=== PATIENT | male | born 1935 | race Caucasian/White ===

== ENCOUNTER 2020-10-21 15:05 | IRF | payer MEDICARE, SELFPAY ==
--- NOTE | ~2020-10-21 | XR_ITS ---
EXAMINATION: XR knee RT 2V EXAM DATE: 10/27/2020 14:09 INDICATION: Right knee pain. TECHNIQUE: Frontal and lateral projections of the right. There is no prior study for comparison. 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 Similar appearance to the contralateral darling e. There are no acute fractures or dislocations identified. There is no subcutaneous gas. There is small joint effusion. There are no radiopaque foreign bodies. IMPRESSION: 1. 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 2. Small joint effusion. Reviewed, dictated and finalized at location B. FILLER
--- NOTE | ~2020-10-21 | XR_ITS ---
EXAMINATION: XR knee LT 2V EXAM DATE: 10/27/2020 14:09 INDICATION: Left knee pain. TECHNIQUE: Frontal and lateral projections of the left knee. There is no prior study for comparison . 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 Similar appearance to the contralateral side. No apprec iable joint effusion. There are no acute fractures or dislocations identified. There is no subcutane ous gas. There are no radiopaque foreign bodies. 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 Reviewed, dictated and finalized at location B. 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
[2020-10-21 15:05] VITALS: BP 122/52; PULSE 93; RESP 18; TEMP 36.6; O2SAT 97
--- NOTE | 2020-10-21 15:39 | ADMGEN ---
This patient, Smith Morillo, was admitted to [facility] Room 226-01. Patient/family oriented to hospital policies and general routines including ID bracelet, bed and alarms, visiting hours, pain management, procedures, bathroom and other care routines, personal items, smoking policy, room service/diet, and visiting hours. Information on how to activate the Rapid Response Team has been discussed. Patient/Family are encouraged to report perceived risks to care and to ask questions if they do not understand what they are told or what they should do. Arrived at 1505 via [facility] , per EMS was stable during transfer () (pulse 96) (resp 16) (O2 sats 98% on room air) Patient knows he is in the hospital but does not know Dio.
[2020-10-21 15:51] VITALS: BMI 25.4
[2020-10-21 16:53] LABS: Glucose Point of Care 149 (65-105)
[2020-10-21] MEDS: SENNA/DOCUSATE SODIUM TABLET 2 TAB PO (20:26)
[2020-10-21] MEDS: traZODone HCL 50 MG TABLET PO (20:26)
[2020-10-21 20:35] VITALS: PULSE 93; RESP 18; O2SAT 97
[2020-10-21 22:00] VITALS: BP 125/63; PULSE 85; RESP 20; TEMP 36.3; O2SAT 98
[2020-10-22 04:59] LABS: Basophils Percent Auto 0.6 % (0.2-1.2); Eosinophils Absolute Auto 0.1 K/mm3 (0-0.3); Eosinophils Percent Auto 1.5 % (0-4.4); Hematocrit 30.7 % (42.0-52.0); Hemoglobin 10.2 g/dL (14.0-18.0); Immature Granulocyte Absolute 0.13 K/mm3 (0.00-0.031); Immature Granulocyte Percent A 2.4 % (0-0.5); Lymphocytes Absolute Auto 0.97 K/mm3 (0.9-3.2); Lymphocytes Percent Auto 18.1 % (18.3-44.2); Mean Corpuscular HGB Conc 33.2 g/dl (32-36); Mean Corpuscular Hemoglobin 31.5 pg (26-34); Mean Corpuscular Volume 94.8 fl (80-100); Mean Platelet Volume 9.4 fl (7.4-10.4); Monocytes Absolute Auto 0.4 K/mm3 (0.1-0.6); Monocytes Percent Auto 7.8 % (2.6-8.5); Neutrophils Absolute Auto 3.7 K/mm3 (1.3-6.7); Neutrophils Percent Auto 69.6 % (45.5-73.1); Platelet Count Result 155 k/mm3 (150-375); Red Blood Count 3.24 M/mm3 (4.6-6.20); Red Cell Distribution Width 15.9 % (11.5-14.5); White Blood Count 5.4 K/mm3 (4.5-10.0)
[2020-10-22 05:23] LABS: Anion Gap -1 mmol/L (8-16); Blood Urea Nitrogen 17 mg/dL (9-20); Calcium 8.1 mg/dL (8.4-10.2); Carbon Dioxide 30 mmol/L (22-30); Chloride 104 mmol/L (98-107); Estimated CRCL calculation 79 ml/min; Estimated Glomerular Filt Rate > 60; Glucose 150 mg/dL (75-110); Potassium 4.1 mmol/L (3.4-5.0); Sodium 133 mmol/L (137-145)
[2020-10-22 05:52] VITALS: BP 141/53; PULSE 84; RESP 20; TEMP 36.2; O2SAT 100
[2020-10-22 06:37] LABS: Glucose Point of Care 159 (65-105)
[2020-10-22] MEDS: PIOGLITAZONE HCL 15 MG TAB PO (09:15)
[2020-10-22] MEDS: ATORVASTATIN 20 MG TABLET PO (09:15)
[2020-10-22] MEDS: lisinopriL 20 MG TABLET 40 MG PO (09:15)
[2020-10-22] MEDS: ASPIRIN 81 MG ENTERIC TABLET PO (09:15)
[2020-10-22] MEDS: SENNA/DOCUSATE SODIUM TABLET 2 TAB PO ×2 (09:17→16:43)
[2020-10-22] MEDS: LIDOCAINE 5% PATCH 2 PATCH TOPICAL (09:20)
[2020-10-22] MEDS: polyethylene glycoL 3350 17 GM POWD.PACK PO (09:21)
[2020-10-22 11:21] VITALS: BMI 25.4
--- NOTE | 2020-10-22 11:58 | WPDREHABHP ---
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 The patient is 85 years old male with past medical history of hypertension, type 2 diabetes mellitus, and is on 81 mg aspirin daily presented to [facility] on October 17, 2020 following an unwitnessed fall from standing in the bathroom the morning of October 16, 2020. A CT scan of the chest, abdomen, and pelvis revealed an L4 vertebral body burst fracture which extending through through the anterior and posterior cortices . Enlargement of the left iliopsoas muscle with surrounding fat stranding without discrete fluid collection, may reflect underlying intramuscular hematoma. Neuro CT scan revealed no acute intracranial hemorrhage, substantial mass effect, midline shift, or hydrocephalus. Neurosurgery was consulted who ordered an MRI, post void residual bladder scan, labs, chest x-ray, EKG, neuro checks q.4 hours and spinal precautions with log roll. On October 18, 2020 MRI of the lumbar spine revealed L4 burst fracture with minimal retropulsion, no large epidural hematoma no cord signal abnormalities. Possible interspinous ligament injury at L3-4 and L4-5 and questionable posterior longitudinal ligament injury at L4. Severe spinal canal stenosis at L2-3, L3-4 and L4-5 primarily due to posterior disc bulge and ligament flavum thickening superimposed on congenital narrowing of the spinal canal. There is also a tiny epidural hematoma at L3-4 level that contributes to the severe canal stenosis at this level. It was decided to opt for neurosurgical management and a TLSO brace. The patient is to follow-up with neurosurgeon 4 to 6 weeks from October 19, 2020 with an upright AP and lateral x-ray of the lumbar spine. Patient was discharged to [facility] on aspirin 81 mg daily which she was on routinely prior to this hospitalization also. Therapy was initiated at the acute care facility and the patient transferred to us from [facility] on October 21, 2020 27. FALLS OR SURGERIES: The patient has had [no] major surgeries in the 100 days prior to admission. They had [no] falls in the past year. They had [no] falls with injury in the past year. PAST MEDICAL HISTORY: hypertension, hyperlipidemia, and type 2 diabetes PAST SURGICAL HISTORY: hip replacement SOCIAL HISTORY: the patient denies smoking, alcohol, or drug use. 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 He resides in a 1 level home with 2 steps to enter. The patient was independent in all ADLs S and IADL S with a cane prior to this hospitalization. The patient lives with his spouse who is also hard of hearing. the patient's son and family live nearby and are able to assist patient after discharge from rehab FAMILY HISTORY: noncontributory PRIOR LEVEL OF FUNCTION: Eating was [INDEPENDENT] Oral Care was [INDEPENDENT] Toileting Hygiene was [INDEPENDENT] Shower/Bathing was [INDEPENDENT] Upper Body Dressing was [INDEPENDENT] Lower Body Dressing was [INDEPENDENT] Donning/[place] Footwear was [INDEPENDENT] Rolling Left and Right was [INDEPENDENT] Sit to Lying was [INDEPENDENT] Lying to Sitting was [INDEPENDENT] Sit to Stand was [INDEPENDENT] Bed to Chair Transfers was [INDEPENDENT] Toilet Transfers was [INDEPENDENT] Walking was [INDEPENDENT] [>500 feet] with quad cane Wheelchair Mobility was [NOT APPLICABLE PRIOR TO ADMISSION] Stairs the patient was able to complete stairs independently CURRENT
--- NOTE | 2020-10-22 13:08 | PCNSR ---
On 10/22/20, the student, Ashley Mcneill, provided care and completed [facility] documentation on this patient. I have reviewed the student's documentation and agree with the findings.
[2020-10-22 14:00] VITALS: BP 118/44; PULSE 90; RESP 18; TEMP 36.8; O2SAT 98
[2020-10-22 19:25] LABS: Glucose Point of Care 183 (65-105)
[2020-10-22 20:10] VITALS: PULSE 90; RESP 18; O2SAT 98
[2020-10-22] MEDS: traZODone HCL 50 MG TABLET PO (20:28)
[2020-10-22 22:00] VITALS: BP 121/43; PULSE 70; RESP 18; TEMP 36.5; O2SAT 97
[2020-10-23 06:00] VITALS: BP 126/52; PULSE 86; RESP 18; TEMP 36.6; O2SAT 97
[2020-10-23 06:29] LABS: Glucose Point of Care 145 (65-105)
[2020-10-23] MEDS: SENNA/DOCUSATE SODIUM TABLET 2 TAB PO ×2 (08:15→16:56)
[2020-10-23] MEDS: LIDOCAINE 5% PATCH 2 PATCH TOPICAL (08:15)
[2020-10-23] MEDS: lisinopriL 20 MG TABLET 40 MG PO (08:15)
[2020-10-23] MEDS: polyethylene glycoL 3350 17 GM POWD.PACK PO (08:15)
[2020-10-23] MEDS: ASPIRIN 81 MG ENTERIC TABLET PO (08:16)
[2020-10-23] MEDS: PIOGLITAZONE HCL 15 MG TAB PO (08:16)
[2020-10-23] MEDS: ATORVASTATIN 20 MG TABLET PO (08:16)
--- NOTE | 2020-10-23 09:46 | RPD ---
INDIVIDUALIZED PLAN OF CARE FOR Smith Morillo Brief Synthesis of Pre-Admission Screen, Post-Admission Evaluation and Therapy Evaluations: The patient presents to rehab with an L4 vertebral body burst fracture which extends through the anterior and posterior cortices. Comorbidities include HTN, HLD, type 2 diabetes, anemia, and low platelets. The complexity of the patient's medical management, nursing, and therapy needs require an inpatient rehab hospital stay with a physician-led interdisciplinary team approach. The patient?s needs will be best met in an intensive program vs. at a lower level of care. The patient requires physician services for medical oversight, management of post-fracture complications in setting of present comorbidities, and pain management. The patient requires nursing services for DVT prophylactics, infection protection, medication management and education, and pressure relief. Deficits include:ADLs, Balance, Endurance, Family Training/Education, Mobility, Pain Management, ROM, Safety, Strength, and Transfers. Commercial Intelligence Manager/Case Management for: Discharge Planning and Patient/Family Counseling Physical Therapy: 5 days per week for 75 minutes. Treatments may include: Therapeutic Exercise, Gait Training, Neuromuscular Re-education, Transfer Training, Community Reintegration, Bed Mobility, Patient/Family Education, Wheelchair Mobility Group Therapy/Concurrent Therapy Rationales: -Improve attention span during functional activities in a distracted environment. -Enhance problem solving and/or adequate judgment skills during functional activities in a distracted environment. -Promote increased safety awareness in a distracted environment to reduce fall risk with functional tasks, transfers, and ambulation to allow a more safe, self-sufficient return to the home environment. -Improve dynamic balance skills to promote safety and independence with functional activities in a distracted environment for maximum gain. Occupational Therapy: 5 days per week for 75 minutes. Treatments may include: Therapeutic Exercise, Therapeutic Activity, Cognitive Training, Self-Care Transfer Training, Community Reintegration, Home Management, Patient/Family Education, Wheelchair Mobility Training, Energy Conservation Training Group Therapy/Concurrent Therapy Rationales: -Allow therapist to observe and teach generalization and carry-over of skills learned in individual therapy. -Enhance problem solving and sequencing skills during therapeutic activities in a distracted environment. -Promote increased safety awareness in a realistic setting to reduce fall risk with functional tasks due to visual and verbal distractions. -Increase functional level with ADLs, ADL transfers and use of adaptive equipment through therapeutic activities with others while promoting safety to allow a more safe, self-sufficient return home. Speech Therapy: 5 days per week for 30 minutes. Treatments may include: Dysphasia Therapy, Speech/Language/Communication Therapy, Cognitive Training, Patient/Family Education Group Therapy/Concurrent Therapy - Rationale: -Allow therapist to observe and teach generalization and carry-over of skills learned in individual therapy. -Improve comprehension skills with complex or abstract ideas through discussion in a realistic setting. -Enhance problem solving skills with complex issues during activities in a distracted environment. -Promote increased memory skills and concentration in a distracted environment for a safe transition home. -Improve attention and focus with language/communication skills in a realistic and supportive therapeutic setting. -Allow for practice of expression of basic needs and ideas through functional activities with others. Medical Prognosis: Good Anticipated Length of Stay: 14 days Rehab Goals: Eating Goal: 05-Setup or Clean Up Assistance Oral Hygiene Goal: 06-Independent Toileting Hygiene Goal: 04-Supervision or Touching Assi
--- NOTE | 2020-10-23 10:31 | WPDNEURORHBP ---
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 Hypertension 2. Diabetes mellitus, most recent labs revealed WBC 5.4 hemoglobin 10.2 platelet count of 155 electrolytes normal, has remained afebrile with temp of 36.6? pulse 86 respiration 18 pulse ox 97% on room air and a blood pressure 126/52 Review of Systems Review of Systems: All systems reviewed & are unremarkable except as noted in HPI and below Functional Status Ambulation Ability Ambulation Assistive Devices: Parallel Bars Exam Const: General: cooperative and comfortable Nutritional Appearance: average body habitus and thin Limitations: other limitations ( hearing deficit) HENMT: Ears: hearing grossly impaired ( bilateral) Eyes: General: appearance normal, both eyes and all related structures Neck: Neck: normal visual inspection and full ROM Resp: Effort & Inspection: normal respiratory effort Auscultation: clear to auscultation bilaterally Cardio: Jugular venous distension: no JVD Rate: regular rate Rhythm: regular rhythm GI: Auscultation: normal bowel sounds Skin: General skin exam: no rashes or lesions noted Neuro: General: patient oriented x3 Cranial nerves: Yes CN's II-XII intact bilaterally Speech: normal speech Gait exam (Neuro): Unable to assess gait Motor exam (neuro): 5/5 motor strength present throughout Sensory Exam: normal sensation Deep tendon reflexes (DTR's): Right triceps reflex intensity grade: 1+, Left triceps reflex intensity grade: 1+, Rt Biceps (C5, C6): 1+, Left biceps reflex intensity grade: 1+, Right brachioradialis reflex intensity grade: 1+, Left brachioradialis reflex intensity grade: 1+, Right patellar reflex intensity grade: 1+, Left patellar reflex intensity grade: 1+, Right ankle reflex intensity grade: 1+ and Left ankle reflex intensity grade: 1+ Plantar Reflex Responses: downgoing: bilateral Psych: Appearance: grossly normal Objective Data Vital Signs Vital Signs: Vital Signs - 24 hr 10/22/20 14:00 10/22/20 20:10 10/22/20 22:00 Temperature 36.8 C 36.5 C Pulse Rate 90 90 70 Respiratory Rate 18 18 18 Blood Pressure 118/44 L 121/43 L Pulse Oximetry 98 98 97 10/23/20 06:00 Temperature 36.6 C Pulse Rate 86 Respiratory Rate 18 Blood Pressure 126/52 L Pulse Oximetry 97 Intake/Output Intake/Output: Intake & Output 10/20/20 10/21/20 10/22/20 10/23/20 23:59 23:59 23:59 23:59 Intake Total 240 420 240 Balance 240 420 240 Meds/Results Medications: Active Medications Generic Name Dose Route Start Last Admin Trade Name Darrin PRN Reason Stop Dose Admin Acetaminophen 1,000 mg 10/21/20 17:14 Acetaminophen 500 Mg Tablet PO Q6H PRN Pain (Scale Score 4-6) Aspirin 81 mg 10/22/20 09:00 10/23/20 08:16 Aspirin 81 Mg Enteric Tablet PO 81 mg DAILY BRANDY Administration Atorvastatin Calcium 20 mg 10/22/20 09:00 10/23/20 08:16 Atorvastatin 20 Mg Tablet PO 20 mg DAILY BRANDY Administration Cyclobenzaprine HCl 5 mg 10/21/20 17:14 Cyclobenzaprine Hcl 5 Mg Tablet PO TID PRN Muscle Spasm Lidocaine 2 patch 10/22/20 09:00 10/23/20 08:15 Lidocaine 5% Patch TOPICAL 2 patch DAILY BRANDY Administration Lisinopril 40 mg 10/22/20 09:00 10/23/20 08:15 Lisinopril 20 Mg Tablet PO 40 mg DAILY BRANDY Administration Metformin HCl 850 mg 10/22/20 08:00 10/23/20 08:16 Metformin Hcl 850 Mg Tablet PO 850 mg DAILY@0800 BRANDY Administration Oxycodone HCl 5 mg 10/21/20 17:14 Oxycodone Hcl (*Crx) 5 Mg Tab Ir PO Q4H PRN Pain (Scale Score 7-10) Pioglitazone HCl 15 mg 10/22/20 08:00 10/23/20 08:16 Pioglitazone Hcl 15 Mg Tab PO 15 mg DAILY@0800 BRANDY Administration Polyethylene Glycol 17 gm 10/22/20 09:00 10/23/20 08:15 Poly
[2020-10-23] MEDS: ACETAMINOPHEN 500 MG TABLET 1000 MG PO (11:25)
[2020-10-23] MEDS: oxyCODONE HCL (*CRX) 5 MG TAB IR PO ×2 (12:50→23:51)
[2020-10-23 14:00] VITALS: BP 119/58; PULSE 89; RESP 16; TEMP 36.2; O2SAT 100
[2020-10-23 16:23] LABS: Glucose Point of Care 173 (65-105)
[2020-10-23 22:00] VITALS: BP 116/43; PULSE 105; RESP 20; TEMP 36.6; O2SAT 97
[2020-10-23] MEDS: traZODone HCL 50 MG TABLET PO (22:00)
[2020-10-24] MEDS: ACETAMINOPHEN 500 MG TABLET 1000 MG PO (01:05)
[2020-10-24 06:00] VITALS: BP 123/58; PULSE 105; RESP 18; TEMP 36.7; O2SAT 97
[2020-10-24 06:46] LABS: Glucose Point of Care 138 (65-105)
[2020-10-24] MEDS: LIDOCAINE 5% PATCH 2 PATCH TOPICAL (08:15)
[2020-10-24] MEDS: oxyCODONE HCL (*CRX) 5 MG TAB IR PO (08:16)
[2020-10-24] MEDS: ATORVASTATIN 20 MG TABLET PO (08:19)
[2020-10-24] MEDS: polyethylene glycoL 3350 17 GM POWD.PACK PO (08:19)
[2020-10-24] MEDS: SENNA/DOCUSATE SODIUM TABLET 2 TAB PO ×2 (08:19→17:19)
[2020-10-24] MEDS: PIOGLITAZONE HCL 15 MG TAB PO (08:20)
[2020-10-24] MEDS: lisinopriL 20 MG TABLET 40 MG PO (08:20)
[2020-10-24] MEDS: ASPIRIN 81 MG ENTERIC TABLET PO (08:20)
[2020-10-24 14:58] VITALS: BP 110/51; PULSE 98; RESP 20; TEMP 36.1; O2SAT 99
[2020-10-24 16:55] LABS: Glucose Point of Care 182 (65-105)
[2020-10-24] MEDS: traZODone HCL 50 MG TABLET PO (21:12)
[2020-10-24] MEDS: MELATONIN 3 MG TABLET 6 MG PO (21:12)
[2020-10-24 22:00] VITALS: BP 124/44; PULSE 96; RESP 20; TEMP 36.4; O2SAT 98
[2020-10-25 06:00] VITALS: BP 128/52; PULSE 88; RESP 20; TEMP 36.1; O2SAT 98
[2020-10-25 06:22] LABS: Glucose Point of Care 141 (65-105)
[2020-10-25] MEDS: lisinopriL 20 MG TABLET 40 MG PO (09:20)
[2020-10-25] MEDS: LIDOCAINE 5% PATCH 2 PATCH TOPICAL (09:20)
[2020-10-25] MEDS: ASPIRIN 81 MG ENTERIC TABLET PO (09:21)
[2020-10-25] MEDS: PIOGLITAZONE HCL 15 MG TAB PO (09:21)
[2020-10-25] MEDS: ATORVASTATIN 20 MG TABLET PO (09:21)
[2020-10-25 14:00] VITALS: BP 121/50; PULSE 88; RESP 16; TEMP 36.4; O2SAT 100
[2020-10-25 17:01] LABS: Glucose Point of Care 169 (65-105)
[2020-10-25 20:00] VITALS: O2SAT 100
[2020-10-25 21:52] VITALS: BP 118/67; PULSE 81; RESP 20; TEMP 36.3; O2SAT 97
[2020-10-25] MEDS: MELATONIN 3 MG TABLET 6 MG PO (21:54)
[2020-10-25] MEDS: traZODone HCL 50 MG TABLET PO (21:54)
[2020-10-26] VITALS (7 sets, daily range): BP systolic 104–126; BP diastolic 46–67; PULSE 67–90; RESP 15–22; TEMP 36.4–37; O2SAT 96–99
[2020-10-26 06:56] LABS: Glucose Point of Care 121 (65-105)
[2020-10-26] MEDS: lisinopriL 20 MG TABLET 40 MG PO (08:28)
[2020-10-26] MEDS: ASPIRIN 81 MG ENTERIC TABLET PO (08:28)
[2020-10-26] MEDS: PIOGLITAZONE HCL 15 MG TAB PO (08:28)
[2020-10-26] MEDS: ATORVASTATIN 20 MG TABLET PO (08:28)
[2020-10-26] MEDS: LIDOCAINE 5% PATCH 2 PATCH TOPICAL (08:29)
[2020-10-26] MEDS: oxyCODONE HCL (*CRX) 5 MG TAB IR PO ×3 (08:36→23:01)
--- NOTE | 2020-10-26 10:44 | WPDNEURORHBP ---
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 Hypertension 2. Diabetes mellitus patient has been involved in the physical therapy and occupational therapy and is also hard of hearing the most recent blood sugar today is 121 and patient is taking the same medication that is metformin 850 daily also he remains afebrile with temp of 36.4? pulse 76 respirations 20 pulse ox 99 with room air and blood pressure of 126/67 Review of Systems Review of Systems: All systems reviewed & are unremarkable except as noted in HPI and below Functional Status Ambulation Ability Ambulation Assistive Devices: Parallel Bars Exam Const: General: cooperative and comfortable Nutritional Appearance: average body habitus and thin Limitations: physical limitations ( hearing deficit) HENMT: Head: normocephalic Ears: hearing grossly impaired General nose exam: Normal external nose present and No nasal discharge present Face and sinus: normal facial exam Mouth: Yes Normal oral and palatal mucosa present Eyes: General: appearance normal, both eyes and all related structures Neck: Neck: full ROM Resp: Effort & Inspection: able to speak in complete sentences Auscultation: clear to auscultation bilaterally Cardio: Rate: regular rate Rhythm: regular rhythm Skin: General skin exam: no rashes or lesions noted Neuro: General: oriented to person, oriented to place, tone normal and moves all extremities Cranial nerves: Yes CN's II-XII intact bilaterally Speech: normal speech Motor exam (neuro): 5/5 motor strength present throughout Deep tendon reflexes (DTR's): Right triceps reflex intensity grade: 1+, Left triceps reflex intensity grade: 1+, Rt Biceps (C5, C6): 1+, Left biceps reflex intensity grade: 1+, Right brachioradialis reflex intensity grade: 1+, Left brachioradialis reflex intensity grade: 1+, Right patellar reflex intensity grade: 1+, Left patellar reflex intensity grade: 1+ and Right ankle reflex intensity grade: 1+ Plantar Reflex Responses: downgoing: bilateral Psych: Mental Status: mental status grossly normal Objective Data Vital Signs Vital Signs: Vital Signs - 24 hr 10/25/20 14:00 10/25/20 20:00 10/25/20 21:52 Temperature 36.4 C 36.3 C L Pulse Rate 88 81 Respiratory Rate 16 20 Blood Pressure 121/50 L 118/67 Pulse Oximetry 100 100 97 10/26/20 06:00 10/26/20 08:00 Temperature 36.4 C Pulse Rate 76 76 Respiratory Rate 20 20 Blood Pressure 126/67 Pulse Oximetry 99 99 Intake/Output Intake/Output: Intake & Output 10/23/20 10/24/20 10/25/20 10/26/20 23:59 23:59 23:59 23:59 Intake Total 240 480 840 480 Balance 240 480 840 480 Meds/Results Medications: Active Medications Generic Name Dose Route Start Last Admin Trade Name Freq PRN Reason Stop Dose Admin Acetaminophen 1,000 mg 10/21/20 17:14 10/24/20 01:05 Acetaminophen 500 Mg Tablet PO 1,000 mg Q6H PRN Administration Pain (Scale Score 4-6) Aspirin 81 mg 10/22/20 09:00 10/26/20 08:28 Aspirin 81 Mg Enteric Tablet PO 81 mg DAILY BRANDY Administration Atorvastatin Calcium 20 mg 10/22/20 09:00 10/26/20 08:28 Atorvastatin 20 Mg Tablet PO 20 mg DAILY BRANDY Administration Cyclobenzaprine HCl 5 mg 10/21/20 17:14 Cyclobenzaprine Hcl 5 Mg Tablet PO TID PRN Muscle Spasm Lidocaine 2 patch 10/22/20 09:00 10/26/20 08:29 Lidocaine 5% Patch TOPICAL 2 patch DAILY BRANDY Administration Lisinopril 40 mg 10/22/20 09:00 10/26/20 08:28 Lisinopril 20 Mg Tablet PO 40 mg DAILY BRANDY Administration Melatonin 6 mg 10/24/20 21:00 10/25/20 21:54 Melatonin 3 Mg Tablet PO 6 mg HS BRANDY Administration Metformin HCl 850 mg 10/22/20 08:00 10/26/20 08:28 Metformin Hcl 850 Mg Tablet PO 850 mg DAILY@0800 BRANDY Administration Oxycod
[2020-10-26 16:42] LABS: Glucose Point of Care 140 (65-105)
--- NOTE | 2020-10-26 16:55 | PC.NURSE ---
Patient confused through out shift. Keeps wanting his stuff off the front porch. Wants his meds in bed with him. Asking why i wont let him walk around. patient takes two people to help get him out of bed. bed alarm is on. call light within reach. continue to monitor.
[2020-10-26] MEDS: ACETAMINOPHEN 500 MG TABLET 1000 MG PO (17:36)
--- NOTE | 2020-10-26 18:07 | PC.NURSE ---
patient remains confused through out shift. insists on walking down the [place]. doesnt understand how to use the call light. reinforced call light instructions. yells out continuously. bed alarms are on. in patient's room numerous times each hour. will continue to monitor.
[2020-10-26] MEDS: MELATONIN 3 MG TABLET 6 MG PO (20:00)
[2020-10-26] MEDS: traZODone HCL 50 MG TABLET PO (20:00)
[2020-10-27 05:48] VITALS: BP 110/49; PULSE 83; RESP 18; TEMP 36.9; O2SAT 98
[2020-10-27 06:37] LABS: Glucose Point of Care 167 (65-105)
[2020-10-27] MEDS: polyethylene glycoL 3350 17 GM POWD.PACK PO (07:46)
[2020-10-27] MEDS: LIDOCAINE 5% PATCH 2 PATCH TOPICAL (07:46)
[2020-10-27] MEDS: ASPIRIN 81 MG ENTERIC TABLET PO (07:47)
[2020-10-27] MEDS: lisinopriL 20 MG TABLET PO (07:47)
[2020-10-27] MEDS: PIOGLITAZONE HCL 15 MG TAB PO (07:47)
[2020-10-27] MEDS: SENNA/DOCUSATE SODIUM TABLET 2 TAB PO ×2 (07:47→17:26)
[2020-10-27] MEDS: ATORVASTATIN 20 MG TABLET PO (07:47)
--- NOTE | 2020-10-27 10:30 | WPDNEURORHBP ---
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 Hypertension 2. Diabetes mellitus has been involved the physical therapy also has been complaining of chronic pain in the knees left more than the right. There is expecting to discharge him on November 09, 2020 his blood sugar today is One hundred sixty-seven and vital signs are stable with temp of 36.9? pulse 83 respiration 18 pulse ox 98% on room air blood pressure 110/49 Review of Systems Review of Systems: All systems reviewed & are unremarkable except as noted in HPI and below Functional Status Ambulation Ability Ambulation Assistive Devices: Walker, Wheeled Exam Const: General: cooperative and comfortable Nutritional Appearance: average body habitus and thin Orientation/consciousness: oriented to person HENMT: Head: normocephalic Eyes: General: appearance normal, both eyes and all related structures Neck: Neck: full ROM Resp: Effort & Inspection: normal respiratory effort Auscultation: clear to auscultation bilaterally Cardio: Jugular venous distension: no JVD Rate: regular rate Rhythm: regular rhythm GI: Auscultation: normal bowel sounds Skin: General skin exam: no rashes or lesions noted Neuro: General: patient oriented x3 and moves all extremities Cranial nerves: Yes CN's II-XII intact bilaterally Cognition (Neuro): normal cognition Speech: normal speech Motor exam (neuro): Abnormal motor strength present Deep tendon reflexes (DTR's): Right triceps reflex intensity grade: 1+, Left triceps reflex intensity grade: 1+, Rt Biceps (C5, C6): 1+, Left biceps reflex intensity grade: 1+, Right brachioradialis reflex intensity grade: 1+, Left brachioradialis reflex intensity grade: 1+, Right patellar reflex intensity grade: 1+, Left patellar reflex intensity grade: 1+, Right ankle reflex intensity grade: 1+ and Left ankle reflex intensity grade: 1+ Plantar Reflex Responses: downgoing: bilateral Psych: Appearance: grossly normal Speech and movement: Clear speech present Affect: normal affect Attitude: Other attitude/behavior findings present (Psych) Thought content: Yes Normal thought content present Insight: Fair insight present (Psych) Judgement: Fair judgement present (Psych) Objective Data Vital Signs Vital Signs: Vital Signs - 24 hr 10/26/20 14:00 10/26/20 17:36 10/26/20 18:43 Temperature 36.8 C 36.8 C 36.8 C Pulse Rate 67 Respiratory Rate 22 H Blood Pressure 108/53 L Pulse Oximetry 98 10/26/20 20:15 10/26/20 22:00 10/27/20 05:48 Temperature 37.0 C 36.9 C Pulse Rate 67 90 83 Respiratory Rate 22 H 15 18 Blood Pressure 104/46 L 110/49 L Pulse Oximetry 98 96 98 Intake/Output Intake/Output: Intake & Output 10/24/20 10/25/20 10/26/20 10/27/20 23:59 23:59 23:59 23:59 Intake Total 975 539 2722 Balance 832 989 9925 Meds/Results Medications: Active Medications Generic Name Dose Route Start Last Admin Trade Name Freq PRN Reason Stop Dose Admin Acetaminophen 1,000 mg 10/21/20 17:14 10/26/20 17:36 Acetaminophen 500 Mg Tablet PO 1,000 mg Q6H PRN Administration Pain (Scale Score 4-6) Aspirin 81 mg 10/22/20 09:00 10/27/20 07:47 Aspirin 81 Mg Enteric Tablet PO 81 mg DAILY BRANDY Administration Atorvastatin Calcium 20 mg 10/22/20 09:00 10/27/20 07:47 Atorvastatin 20 Mg Tablet PO 20 mg DAILY BRANDY Administration Cyclobenzaprine HCl 5 mg 10/21/20 17:14 Cyclobenzaprine Hcl 5 Mg Tablet PO TID PRN Muscle Spasm Lidocaine 2 patch 10/22/20 09:00 10/27/20 07:46 Lidocaine 5% Patch TOPICAL 2 patch DAILY BRANDY Administration Lisinopril 20 mg 10/27/20 09:00 10/27/20 07:47 Lisinopril 20 Mg Tablet PO 20 mg QAM BRANDY Administration Melatonin 6 mg 10/24/20 21:00 10/26/20 20:00
--- NOTE | 2020-10-27 10:37 | WPDNEURORHBP ---
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 Vital signs have remained stable with temp of 36.9? pulse 83 respiration 18 pulse ox 98% on room air and blood pressure 110/49 ,there is no recent lab. Review of Systems Review of Systems: All systems reviewed & are unremarkable except as noted in HPI and below Functional Status Ambulation Ability Ambulation Assistive Devices: Walker, Wheeled Exam Const: General: cooperative, comfortable and no acute distress Nutritional Appearance: average body habitus HENMT: Head: normocephalic Eyes: General: appearance normal, both eyes and all related structures Resp: Auscultation: clear to auscultation bilaterally Cardio: Rate: regular rate Rhythm: regular rhythm GI: Auscultation: normal bowel sounds Neuro: General: patient oriented x3 and moves all extremities Cranial nerves: Yes CN's II-XII intact bilaterally Cognition (Neuro): normal cognition Speech: normal speech Gait exam (Neuro): Assisted gait required Deep tendon reflexes (DTR's): Right triceps reflex intensity grade: 1+, Left triceps reflex intensity grade: 1+, Rt Biceps (C5, C6): 1+, Left biceps reflex intensity grade: 1+, Right brachioradialis reflex intensity grade: 1+, Left brachioradialis reflex intensity grade: 1+, Right patellar reflex intensity grade: 1+, Left patellar reflex intensity grade: 1+, Right ankle reflex intensity grade: 1+ and Left ankle reflex intensity grade: 1+ Plantar Reflex Responses: downgoing: bilateral Psych: Appearance: grossly normal Mental Status: mental status grossly normal ( up and down) Objective Data Vital Signs Vital Signs: Vital Signs - 24 hr 10/26/20 14:00 10/26/20 17:36 10/26/20 18:43 Temperature 36.8 C 36.8 C 36.8 C Pulse Rate 67 Respiratory Rate 22 H Blood Pressure 108/53 L Pulse Oximetry 98 10/26/20 20:15 10/26/20 22:00 10/27/20 05:48 Temperature 37.0 C 36.9 C Pulse Rate 67 90 83 Respiratory Rate 22 H 15 18 Blood Pressure 104/46 L 110/49 L Pulse Oximetry 98 96 98 Intake/Output Intake/Output: Intake & Output 10/24/20 10/25/20 10/26/20 10/27/20 23:59 23:59 23:59 23:59 Intake Total 727 062 5606 Balance 576 238 7208 Meds/Results Medications: Active Medications Generic Name Dose Route Start Last Admin Trade Name Freq PRN Reason Stop Dose Admin Acetaminophen 1,000 mg 10/21/20 17:14 10/26/20 17:36 Acetaminophen 500 Mg Tablet PO 1,000 mg Q6H PRN Administration Pain (Scale Score 4-6) Aspirin 81 mg 10/22/20 09:00 10/27/20 07:47 Aspirin 81 Mg Enteric Tablet PO 81 mg DAILY BRANDY Administration Atorvastatin Calcium 20 mg 10/22/20 09:00 10/27/20 07:47 Atorvastatin 20 Mg Tablet PO 20 mg DAILY BRANDY Administration Cyclobenzaprine HCl 5 mg 10/21/20 17:14 Cyclobenzaprine Hcl 5 Mg Tablet PO TID PRN Muscle Spasm Lidocaine 2 patch 10/22/20 09:00 10/27/20 07:46 Lidocaine 5% Patch TOPICAL 2 patch DAILY BRANDY Administration Lisinopril 20 mg 10/27/20 09:00 10/27/20 07:47 Lisinopril 20 Mg Tablet PO 20 mg QAM BRANDY Administration Melatonin 6 mg 10/24/20 21:00 10/26/20 20:00 Melatonin 3 Mg Tablet PO 6 mg HS BRANDY Administration Metformin HCl 850 mg 10/22/20 08:00 10/27/20 07:47 Metformin Hcl 850 Mg Tablet PO 850 mg DAILY@0800 BRANDY Administration Oxycodone HCl 5 mg 10/21/20 17:14 10/26/20 23:01 Oxycodone Hcl (*Crx) 5 Mg Tab Ir PO 5 mg Q4H PRN Administration Pain (Scale Score 7-10) Pioglitazone HCl 15 mg 10/22/20 08:00 10/27/20 07:47 Pioglitazone Hcl 15 Mg Tab PO 15 mg DAILY@0800 BRANDY Administration Polyethylene Glycol 17 gm 10/22/20 09:00 10/27/20 07:46 Poly
[2020-10-27] MEDS: ACETAMINOPHEN 500 MG TABLET 1000 MG PO ×2 (11:10→18:48)
[2020-10-27 14:00] VITALS: BP 102/50; PULSE 92; RESP 20; TEMP 36.5; O2SAT 98
[2020-10-27 16:18] LABS: Glucose Point of Care 141 (65-105)
[2020-10-27] MEDS: oxyCODONE HCL (*CRX) 5 MG TAB IR PO (19:41)
[2020-10-27] MEDS: MELATONIN 3 MG TABLET 6 MG PO (20:45)
[2020-10-27] MEDS: traZODone HCL 50 MG TABLET PO (20:45)
[2020-10-27 22:00] VITALS: BP 108/43; PULSE 88; RESP 20; TEMP 36.9; O2SAT 97
[2020-10-28 05:52] VITALS: BP 114/58; PULSE 82; RESP 18; TEMP 36.1; O2SAT 98
[2020-10-28 06:51] LABS: Glucose Point of Care 121 (65-105)
[2020-10-28] MEDS: SENNA/DOCUSATE SODIUM TABLET 2 TAB PO ×2 (08:09→17:09)
[2020-10-28] MEDS: lisinopriL 20 MG TABLET PO (08:09)
[2020-10-28] MEDS: ASPIRIN 81 MG ENTERIC TABLET PO (08:09)
[2020-10-28] MEDS: PIOGLITAZONE HCL 15 MG TAB PO (08:09)
[2020-10-28] MEDS: ATORVASTATIN 20 MG TABLET PO (08:09)
[2020-10-28] MEDS: polyethylene glycoL 3350 17 GM POWD.PACK PO (08:10)
[2020-10-28] MEDS: LIDOCAINE 5% PATCH 2 PATCH TOPICAL (08:10)
[2020-10-28] MEDS: ACETAMINOPHEN 500 MG TABLET 1000 MG PO (08:10)
[2020-10-28] MEDS: oxyCODONE HCL (*CRX) 5 MG TAB IR PO ×2 (10:55→17:09)
--- NOTE | 2020-10-28 11:21 | WPDNEURORHBP ---
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 Remains afebrile with temp of 36.1? pulse 82 respirations 18 pulse ox 98% blood pressure 114/58 Review of Systems Review of Systems: All systems reviewed & are unremarkable except as noted in HPI and below Functional Status Ambulation Ability Ambulation Assistive Devices: Parallel Bars Exam Const: General: cooperative, comfortable and no acute distress Nutritional Appearance: average body habitus Orientation/consciousness: patient oriented x3 Limitations: other limitations ( L4 vertebral body burst fracture) HENMT: Head: normocephalic Ears: hearing grossly impaired General nose exam: Normal external nose present and No nasal discharge present Eyes: General: appearance normal, both eyes and all related structures Neck: Neck: full ROM Resp: Effort & Inspection: normal respiratory effort Auscultation: clear to auscultation bilaterally Cardio: Rate: regular rate Rhythm: regular rhythm GI: Auscultation: normoactive bowel sounds Neuro: General: patient oriented x3 Cranial nerves: Yes CN's II-XII intact bilaterally Cognition (Neuro): normal cognition Motor exam (neuro): 5/5 motor strength present throughout Sensory Exam: normal sensation Deep tendon reflexes (DTR's): Right triceps reflex intensity grade: 1+, Left triceps reflex intensity grade: 1+, Rt Biceps (C5, C6): 1+, Left biceps reflex intensity grade: 1+, Right brachioradialis reflex intensity grade: 1+, Left brachioradialis reflex intensity grade: 1+, Right patellar reflex intensity grade: 1+, Left patellar reflex intensity grade: 1+, Right ankle reflex intensity grade: 1+ and Left ankle reflex intensity grade: 1+ Coordination: [id number] test normal Psych: Appearance: grossly normal Objective Data Vital Signs Vital Signs: Vital Signs - 24 hr 10/27/20 14:00 10/27/20 22:00 10/28/20 05:52 Temperature 36.5 C 36.9 C 36.1 C L Pulse Rate 92 88 82 Respiratory Rate 20 20 18 Blood Pressure 102/50 L 108/43 L 114/58 L Pulse Oximetry 98 97 98 Intake/Output Intake/Output: Intake & Output 01/31/21 10/26/20 10/27/20 10/28/20 23:59 23:59 23:59 23:59 Intake Total 840 1440 720 100 Balance 840 1440 720 100 Meds/Results Medications: Active Medications Generic Name Dose Route Start Last Admin Trade Name Freq PRN Reason Stop Dose Admin Acetaminophen 1,000 mg 10/21/20 17:14 10/28/20 08:10 Acetaminophen 500 Mg Tablet PO 1,000 mg Q6H PRN Administration Pain (Scale Score 4-6) Aspirin 81 mg 10/22/20 09:00 10/28/20 08:09 Aspirin 81 Mg Enteric Tablet PO 81 mg DAILY BRANDY Administration Atorvastatin Calcium 20 mg 10/22/20 09:00 10/28/20 08:09 Atorvastatin 20 Mg Tablet PO 20 mg DAILY BRANDY Administration Cyclobenzaprine HCl 5 mg 10/21/20 17:14 Cyclobenzaprine Hcl 5 Mg Tablet PO TID PRN Muscle Spasm Lidocaine 2 patch 10/22/20 09:00 10/28/20 08:10 Lidocaine 5% Patch TOPICAL 2 patch DAILY BRANDY Administration Lisinopril 20 mg 10/27/20 09:00 10/28/20 08:09 Lisinopril 20 Mg Tablet PO 20 mg QAM BRANDY Administration Melatonin 6 mg 10/24/20 21:00 10/27/20 20:45 Melatonin 3 Mg Tablet PO 6 mg HS BRANDY Administration Metformin HCl 850 mg 10/22/20 08:00 10/28/20 08:09 Metformin Hcl 850 Mg Tablet PO 850 mg DAILY@0800 BRANDY Administration Oxycodone HCl 5 mg 10/28/20 12:00 10/28/20 10:55 Oxycodone Hcl (*Crx) 5 Mg Tab Ir PO 5 mg Q6HR BRANDY Administration Pioglitazone HCl 15 mg 10/22/20 08:00 10/28/20 08:09 Pioglitazone Hcl 15 Mg Tab PO 15 mg DAILY@0800 BR[facility] Administration Polyethylene Glycol 17 gm 10/22/20 09:00 10/28/20 08:10 Polyethylene Glycol 3350 17 Gm Powd.Pack PO 17 gm DAILY BRANDY Administration Senna/
[2020-10-28 14:00] VITALS: BP 109/43; PULSE 95; RESP 18; TEMP 36.6; O2SAT 97
[2020-10-28 16:22] LABS: Glucose Point of Care 134 (65-105)
[2020-10-28] MEDS: traZODone HCL 50 MG TABLET PO (20:15)
[2020-10-28] MEDS: CYCLOBENZAPRINE HCL 5 MG TABLET PO (20:15)
[2020-10-28] MEDS: MELATONIN 3 MG TABLET 6 MG PO (20:15)
[2020-10-28 22:00] VITALS: BP 112/52; PULSE 90; RESP 20; TEMP 36; O2SAT 98
[2020-10-29] MEDS: oxyCODONE HCL (*CRX) 5 MG TAB IR PO ×5 (00:14→23:10)
[2020-10-29 05:19] LABS: Basophils Absolute Auto 0.1 K/mm3 (0.0-0.1); Eosinophils Absolute Auto 0.1 K/mm3 (0-0.3); Eosinophils Percent Auto 1.3 % (0-4.4); Hematocrit 28.6 % (42.0-52.0); Hemoglobin 9.2 g/dL (14.0-18.0); Immature Granulocyte Absolute 0.17 K/mm3 (0.00-0.031); Immature Granulocyte Percent A 2.8 % (0-0.5); Lymphocytes Absolute Auto 1.23 K/mm3 (0.9-3.2); Lymphocytes Percent Auto 19.9 % (18.3-44.2); Mean Corpuscular HGB Conc 32.2 g/dl (32-36); Mean Corpuscular Hemoglobin 30.9 pg (26-34); Mean Platelet Volume 9.2 fl (7.4-10.4); Monocytes Absolute Auto 0.5 K/mm3 (0.1-0.6); Monocytes Percent Auto 8.3 % (2.6-8.5); Neutrophils Absolute Auto 4.1 K/mm3 (1.3-6.7); Neutrophils Percent Auto 66.7 % (45.5-73.1); Platelet Count Result 259 k/mm3 (150-375); Red Blood Count 2.98 M/mm3 (4.6-6.20); Red Cell Distribution Width 16.6 % (11.5-14.5); White Blood Count 6.2 K/mm3 (4.5-10.0)
[2020-10-29 05:38] LABS: Anion Gap 0 mmol/L (8-16); Blood Urea Nitrogen 17 mg/dL (9-20); Calcium 8.1 mg/dL (8.4-10.2); Carbon Dioxide 31 mmol/L (22-30); Chloride 101 mmol/L (98-107); Estimated CRCL calculation 70 ml/min; Estimated Glomerular Filt Rate > 60; Glucose 106 mg/dL (75-110); Potassium 3.9 mmol/L (3.4-5.0); Sodium 132 mmol/L (137-145)
[2020-10-29 06:00] VITALS: BP 115/48; PULSE 89; RESP 20; TEMP 35.5; O2SAT 98
[2020-10-29 06:41] LABS: Glucose Point of Care 100 (65-105)
[2020-10-29 09:00] VITALS: O2SAT 40
[2020-10-29] MEDS: LIDOCAINE 5% PATCH 2 PATCH TOPICAL (09:28)
[2020-10-29] MEDS: CYCLOBENZAPRINE HCL 5 MG TABLET PO (09:28)
[2020-10-29] MEDS: PIOGLITAZONE HCL 15 MG TAB PO (09:29)
[2020-10-29] MEDS: ASPIRIN 81 MG ENTERIC TABLET PO (09:29)
[2020-10-29] MEDS: ATORVASTATIN 20 MG TABLET PO (09:29)
[2020-10-29] MEDS: lisinopriL 20 MG TABLET PO (09:29)
[2020-10-29] MEDS: SENNA/DOCUSATE SODIUM TABLET 2 TAB PO (09:29)
--- NOTE | 2020-10-29 11:52 | WPDNEURORHBP ---
Subjective Date/time seen: 10/29/20 11:52 85 years old with spinal cord dysfunction remains actively involved in the physical therapy and occupational therapy also remains afebrile with temp of 35.5? pulse 89 respiration 20 blood pressure 115/48 pulse ox 98% on room air, CBC revealed WBC 6.2 hemoglobin 9.2 and the platelet count 259 electrolytes with sodium 132 Review of Systems Review of Systems: All systems reviewed & are unremarkable except as noted in HPI and below Functional Status Ambulation Ability Ambulation Assistive Devices: Parallel Bars Exam Const: General: cooperative, comfortable, no acute distress, alert and awake Nutritional Appearance: average body habitus Limitations: no limitations HENMT: Head: normocephalic General nose exam: Normal external nose present and No nasal discharge present Eyes: General: appearance normal, both eyes and all related structures Neck: Neck: full ROM and no lymphadenopathy Resp: Effort & Inspection: normal respiratory effort Auscultation: clear to auscultation bilaterally Cardio: Jugular venous distension: no JVD Rate: regular rate Rhythm: regular rhythm GI: Auscultation: normal bowel sounds Skin: General skin exam: no rashes or lesions noted Neuro: General: patient oriented x3 and moves all extremities Cranial nerves: Yes CN's II-XII intact bilaterally Cognition (Neuro): normal cognition Speech: normal speech Gait exam (Neuro): Unable to assess gait Deep tendon reflexes (DTR's): Right triceps reflex intensity grade: 1+, Left triceps reflex intensity grade: 1+, Rt Biceps (C5, C6): 1+, Left biceps reflex intensity grade: 1+, Right brachioradialis reflex intensity grade: 1+, Left brachioradialis reflex intensity grade: 1+, Right patellar reflex intensity grade: 1+, Left patellar reflex intensity grade: 1+, Right ankle reflex intensity grade: 1+ and Left ankle reflex intensity grade: 1+ Plantar Reflex Responses: downgoing: bilateral Psych: Appearance: grossly normal Objective Data Vital Signs Vital Signs: Vital Signs - 24 hr 10/28/20 14:00 10/28/20 22:00 10/29/20 06:00 Temperature 36.6 C 36.0 C L 35.5 C L Pulse Rate 95 90 89 Respiratory Rate 18 20 20 Blood Pressure 109/43 L 112/52 L 115/48 L Pulse Oximetry 97 98 98 Intake/Output Intake/Output: Intake & Output 10/26/20 10/27/20 10/28/20 10/29/20 23:59 23:59 23:59 23:59 Intake Total 1440 720 460 240 Balance 1440 720 460 240 Meds/Results Medications: Active Medications Generic Name Dose Route Start Last Admin Trade Name Freq PRN Reason Stop Dose Admin Acetaminophen 1,000 mg 10/21/20 17:14 10/28/20 08:10 Acetaminophen 500 Mg Tablet PO 1,000 mg Q6H PRN Administration Pain (Scale Score 4-6) Aspirin 81 mg 10/22/20 09:00 10/29/20 09:29 Aspirin 81 Mg Enteric Tablet PO 81 mg DAILY BRANDY Administration Atorvastatin Calcium 20 mg 10/22/20 09:00 10/29/20 09:29 Atorvastatin 20 Mg Tablet PO 20 mg DAILY BRANDY Administration Cyclobenzaprine HCl 5 mg 10/21/20 17:14 10/29/20 09:28 Cyclobenzaprine Hcl 5 Mg Tablet PO 5 mg TID PRN Administration Muscle Spasm Lidocaine 2 patch 10/22/20 09:00 10/29/20 09:28 Lidocaine 5% Patch TOPICAL 2 patch DAILY BRANDY Administration Lisinopril 20 mg 10/27/20 09:00 10/29/20 09:29 Lisinopril 20 Mg Tablet PO 20 mg QAM BRANDY Administration Melatonin 6 mg 10/24/20 21:00 10/28/20 20:15 Melatonin 3 Mg Tablet PO 6 mg HS BRANDY Administration Metformin HCl 850 mg 10/22/20 08:00 10/29/20 09:29 Metformin Hcl 850 Mg Tablet PO 850 mg DAILY@0800 BRANDY Administration Oxycodone HCl 5 mg 10/28/20 12:00 10/29/20 05:19 Oxycodone Hcl (*Crx) 5 Mg Tab Ir PO 5 mg Q6HR BRANDY Administration Pioglitazone HCl 15 mg 10/22/20 08:00 10/29/20 09:29 Pioglitazone Hcl 15 Mg Tab PO 15 mg DAILY@0800 BRANDY Administration Polyethylene Glycol 17 gm 10/22/20 09:00 10/29/20 09:29 Polyethylene Glycol 3350
--- NOTE | 2020-10-29 12:52 | PCNFU ---
Nutrition Follow-Up Complete: No nutritional diagnosis at this time. Goal: Continue meeting nutritional needs and consuming 75-100% meals. Patient is still working towards this goal. No new goal at this time. Pt current nutrition is diabetic carb consistent diet. Last recorded weight is 89.9 kg. Recommend re-weighing patient. Bowel Motility:+ BM 10/29 Labs Reviewed: Hgb 9.2, Hct 29.6, Na 132, BUN 0 Meds Noted: Lipitor, Miralax, Desyrel, Lidoderm, Prinivil, Glucophage, Actos, Flexeril Additional Notes: Spoke with patient. Patient reports having a good appetite. Monitor labs, medications, weight, and oral intake every 7 days.
--- NOTE | 2020-10-29 13:37 | PCNSR ---
On 10/29/20, the student, Ashley Mcneill, provided care and completed [facility] documentation on this patient. I have reviewed the student's documentation and agree with the findings.
[2020-10-29 13:46] LABS: Add Urine Microscopic? YES; Appearance Urine Clear (Clear); Bacteria Urine Trace /hpf; Bilirubin Urine Negative (Negative); Blood Urine Negative (Negative); Color Urine Yellow (Yellow); Glucose Urine UA Negative (Negative); Ketones Urine Negative (Negative); Leukocyte Esterase Ur Negative LEU/UL (Negative); Mucus Urine Rare /lpf; Nitrate Urine Negative (Negative); Protein Urine Negative (Negative); RBC Urine 0-2 /hpf (0-2); Specific Grav Ur 1.015 (1.001-1.035); Squamous Epithelial Cell Urine Rare /hpf (Few); WBC Urine 0-3 /hpf
[2020-10-29 14:00] VITALS: BP 142/75; PULSE 88; RESP 20; TEMP 36.5; O2SAT 100
[2020-10-29 16:46] LABS: Glucose Point of Care 107 (65-105)
[2020-10-29] MEDS: MELATONIN 3 MG TABLET 6 MG PO (20:34)
[2020-10-29] MEDS: traZODone HCL 50 MG TABLET PO (20:34)
[2020-10-29 22:00] VITALS: BP 116/48; PULSE 89; RESP 20; TEMP 36.6; O2SAT 98
[2020-10-30] MEDS: oxyCODONE HCL (*CRX) 5 MG TAB IR PO ×3 (05:49→21:55)
[2020-10-30 06:00] VITALS: BP 126/52; PULSE 88; RESP 20; TEMP 36.1; O2SAT 99
[2020-10-30 06:08] LABS: Glucose Point of Care 121 (65-105)
[2020-10-30] MEDS: ASPIRIN 81 MG ENTERIC TABLET PO (08:41)
[2020-10-30] MEDS: LIDOCAINE 5% PATCH 2 PATCH TOPICAL (08:41)
[2020-10-30] MEDS: lisinopriL 20 MG TABLET PO (08:41)
[2020-10-30] MEDS: PIOGLITAZONE HCL 15 MG TAB PO (08:41)
[2020-10-30] MEDS: ATORVASTATIN 20 MG TABLET PO (08:42)
[2020-10-30] MEDS: CYCLOBENZAPRINE HCL 5 MG TABLET PO (08:44)
[2020-10-30 14:00] VITALS: BP 102/43; PULSE 94; RESP 18; TEMP 36.9; O2SAT 97
--- NOTE | 2020-10-30 15:17 | WPDNEURORHBP ---
Subjective Date/time seen: 10/30/20 15:17 85 years old with spinal cord dysfunction remains involving the physical therapy and occupational therapy, most recent lab with WBC 6.2 hemoglobin 9.2 platelet count of 259 and normal UA Review of Systems Review of Systems: All systems reviewed & are unremarkable except as noted in HPI and below Functional Status Ambulation Ability Ambulation Assistive Devices: Parallel Bars Exam Const: General: cooperative and comfortable Nutritional Appearance: average body habitus Limitations: no limitations HENMT: Head: normocephalic Ears: hearing grossly normal bilaterally General nose exam: Normal external nose present and No nasal discharge present Neck: Neck: full ROM Resp: Auscultation: clear to auscultation bilaterally Cardio: Rate: regular rate Rhythm: regular rhythm GI: Auscultation: normal bowel sounds Neuro: General: patient oriented x3 Cranial nerves: Yes CN's II-XII intact bilaterally Cognition (Neuro): normal cognition Speech: normal speech Motor exam (neuro): 5/5 motor strength present throughout Deep tendon reflexes (DTR's): Left triceps reflex intensity grade: 1+, Rt Biceps (C5, C6): 1+, Left biceps reflex intensity grade: 1+, Right brachioradialis reflex intensity grade: 1+, Left brachioradialis reflex intensity grade: 1+, Right patellar reflex intensity grade: 1+, Left patellar reflex intensity grade: 1+, Right ankle reflex intensity grade: 1+ and Left ankle reflex intensity grade: 1+ Plantar Reflex Responses: downgoing: bilateral Coordination: [id number] test normal Psych: Appearance: grossly normal Objective Data Vital Signs Vital Signs: Vital Signs - 24 hr 10/29/20 22:00 10/30/20 06:00 10/30/20 14:00 Temperature 36.6 C 36.1 C L 36.9 C Pulse Rate 89 88 94 Respiratory Rate 20 20 18 Blood Pressure 116/48 L 126/52 L 102/43 L Pulse Oximetry 98 99 97 Intake/Output Intake/Output: Intake & Output 10/27/20 10/28/20 10/29/20 10/30/20 23:59 23:59 23:59 23:59 Intake Total 720 460 720 480 Balance 720 460 720 480 Meds/Results Medications: Active Medications Generic Name Dose Route Start Last Admin Trade Name Freq PRN Reason Stop Dose Admin Acetaminophen 1,000 mg 10/21/20 17:14 10/28/20 08:10 Acetaminophen 500 Mg Tablet PO 1,000 mg Q6H PRN Administration Pain (Scale Score 4-6) Aspirin 81 mg 10/22/20 09:00 10/30/20 08:41 Aspirin 81 Mg Enteric Tablet PO 81 mg DAILY BRANDY Administration Atorvastatin Calcium 20 mg 10/22/20 09:00 10/30/20 08:42 Atorvastatin 20 Mg Tablet PO 20 mg DAILY BRANDY Administration Diclofenac Sodium 75 mg 10/30/20 17:00 Diclofenac Sod 75 Mg Tablet.Ec PO BIDWM BRANDY Lidocaine 2 patch 10/22/20 09:00 10/30/20 08:41 Lidocaine 5% Patch TOPICAL 2 patch DAILY BRANDY Administration Lisinopril 20 mg 10/27/20 09:00 10/30/20 08:41 Lisinopril 20 Mg Tablet PO 20 mg QAM [facility] Administration Melatonin 6 mg 10/24/20 21:00 10/29/20 20:34 Melatonin 3 Mg Tablet PO 6 mg HS [facility] Administration Metformin HCl 850 mg 10/22/20 08:00 10/30/20 08:41 Metformin Hcl 850 Mg Tablet PO 850 mg DAILY@0800 [facility] Administration Oxycodone HCl 5 mg 10/30/20 22:00 Oxycodone Hcl (*Crx) 5 Mg Tab Ir PO Q8HR [facility] Pioglitazone HCl 15 mg 10/22/20 08:00 10/30/20 08:41 Pioglitazone Hcl 15 Mg Tab PO 15 mg DAILY@0800 [facility] Administration Polyethylene Glycol 17 gm 10/22/20 09:00 10/30/20 08:43 Polyethylene Glycol 3350 17 Gm Powd.Pack PO Not Given DAILY [facility] Senna/Docusate Sodium 2 tab 10/21/20 17:00 10/30/20 08:42 Senna/Docusate Sodium Tablet PO Not Given BID [facility] Trazodone HCl 50 mg 10/21/20 21:00 10/29/20 20:34 Trazodone Hcl 50 Mg Tablet PO 50 mg HS [facility] Administration Radiology Results: ITS Impressions Knee X-Ray 10/27/20 14:17 IMPRESSION: 1. 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 2. Smal
[2020-10-30 16:58] LABS: Alanine Aminotransferase 20 U/L (4-50); Albumin Level 3.2 g/dL (3.5-5.1); Alkaline Phosphatase 113 U/L (38-126); Aspartate Amino Transferase 25 U/L (17-59); Bilirubin,Total 0.8 mg/dL (0.2-1.3)
[2020-10-30 17:30] LABS: Glucose Point of Care 126 (65-105)
[2020-10-30] MEDS: DICLOFENAC SOD 75 MG TABLET.EC PO (18:17)
[2020-10-30 20:00] VITALS: O2SAT 97
[2020-10-30] MEDS: MELATONIN 3 MG TABLET 6 MG PO (21:55)
[2020-10-30] MEDS: traZODone HCL 50 MG TABLET PO (21:55)
[2020-10-30 22:00] VITALS: BP 113/56; PULSE 83; RESP 18; TEMP 36.8; O2SAT 96
[2020-10-31 05:02] VITALS: BP 111/42; PULSE 79; RESP 18; TEMP 36.4; O2SAT 98
[2020-10-31] MEDS: oxyCODONE HCL (*CRX) 5 MG TAB IR PO ×3 (06:34→20:20)
[2020-10-31 06:52] LABS: Glucose Point of Care 110 (65-105)
[2020-10-31 08:00] VITALS: PULSE 79; RESP 18; O2SAT 98
[2020-10-31] MEDS: ASPIRIN 81 MG ENTERIC TABLET PO (09:26)
[2020-10-31] MEDS: ATORVASTATIN 20 MG TABLET PO (09:27)
[2020-10-31] MEDS: lisinopriL 20 MG TABLET PO (09:27)
[2020-10-31] MEDS: PIOGLITAZONE HCL 15 MG TAB PO (09:27)
[2020-10-31] MEDS: DICLOFENAC SOD 75 MG TABLET.EC PO ×2 (09:27→16:56)
[2020-10-31] MEDS: LIDOCAINE 5% PATCH 2 PATCH TOPICAL (09:28)
[2020-10-31] MEDS: polyethylene glycoL 3350 17 GM POWD.PACK PO (09:28)
[2020-10-31] MEDS: SENNA/DOCUSATE SODIUM TABLET 2 TAB PO ×2 (09:28→16:56)
[2020-10-31 09:29] VITALS: TEMP 36.4
[2020-10-31] MEDS: ACETAMINOPHEN 500 MG TABLET 1000 MG PO (09:29)
[2020-10-31 14:00] VITALS: BP 127/48; PULSE 89; RESP 20; TEMP 36.8; O2SAT 99
--- NOTE | 2020-10-31 14:20 | WPDNEURORHBP ---
Subjective Date/time seen: 10/31/20 14:20 remains stable with no change in than low neurological status has been involving the physical therapy and occupation therapy extremely hard of hearing almost to the point difficult to communicate, remains afebrile with temp of 36.4? pulse 79 respiration 18 pulse ox 98 on the room air and a blood pressure 111/42 Review of Systems Review of Systems: All systems reviewed & are unremarkable except as noted in HPI and below Functional Status Ambulation Ability Ambulation Assistive Devices: Parallel Bars Exam Const: General: cooperative and comfortable Nutritional Appearance: average body habitus Limitations: no limitations and other limitations ( significant hearing deficit) HENMT: Ears: hearing grossly impaired General nose exam: Normal external nose present and No nasal discharge present Eyes: General: appearance normal, both eyes and all related structures Chest: Chest palpation & inspection: normal palpation of entire chest wall Resp: Effort & Inspection: normal respiratory effort Auscultation: clear to auscultation bilaterally Cardio: Jugular venous distension: no JVD Rate: regular rate Rhythm: regular rhythm GI: Auscultation: normal bowel sounds Neuro: General: patient oriented x3 Cranial nerves: Yes CN's II-XII intact bilaterally, Yes Bilaterally intact EOM present, Yes Nystagmus not present, Yes facial symmetry, Yes Midline tongue present, Yes Symmetric palate elevation present, Yes hard of hearing and Yes Ability to bilaterally rotate head present Speech: normal speech Psych: Appearance: grossly normal Objective Data Vital Signs Vital Signs: Vital Signs - 24 hr 10/30/20 20:00 10/30/20 22:00 10/31/20 05:02 Temperature 36.8 C 36.4 C Pulse Rate 83 79 Respiratory Rate 18 18 Blood Pressure 113/56 L 111/42 L Pulse Oximetry 97 96 98 10/31/20 08:00 10/31/20 09:29 Temperature 36.4 C Pulse Rate 79 Respiratory Rate 18 Blood Pressure Pulse Oximetry 98 Intake/Output Intake/Output: Intake & Output 10/28/20 10/29/20 10/30/20 10/31/20 23:59 23:59 23:59 23:59 Intake Total 460 720 720 480 Balance 460 720 720 480 Meds/Results Medications: Active Medications Generic Name Dose Route Start Last Admin Trade Name Freq PRN Reason Stop Dose Admin Acetaminophen 1,000 mg 10/21/20 17:14 10/31/20 09:29 Acetaminophen 500 Mg Tablet PO 1,000 mg Q6H PRN Administration Pain (Scale Score 4-6) Aspirin 81 mg 10/22/20 09:00 10/31/20 09:26 Aspirin 81 Mg Enteric Tablet PO 81 mg DAILY BRANDY Administration Atorvastatin Calcium 20 mg 10/22/20 09:00 10/31/20 09:27 Atorvastatin 20 Mg Tablet PO 20 mg DAILY BRANDY Administration Diclofenac Sodium 75 mg 10/30/20 17:00 10/31/20 09:27 Diclofenac Sod 75 Mg Tablet.Ec PO 75 mg BIDWM BRANDY Administration Lidocaine 2 patch 10/22/20 09:00 10/31/20 09:28 Lidocaine 5% Patch TOPICAL 2 patch DAILY BRANDY Administration Lisinopril 20 mg 10/27/20 09:00 10/31/20 09:27 Lisinopril 20 Mg Tablet PO 20 mg QAM BRANDY Administration Melatonin 6 mg 10/24/20 21:00 10/30/20 21:55 Melatonin 3 Mg Tablet PO 6 mg HS BRANDY Administration Metformin HCl 850 mg 10/22/20 08:00 10/31/20 09:27 Metformin Hcl 850 Mg Tablet PO 850 mg DAILY@0800 BRANDY Administration Oxycodone HCl 5 mg 10/30/20 22:00 10/31/20 06:34 Oxycodone Hcl (*Crx) 5 Mg Tab Ir PO 5 mg Q8HR BRANDY Administration Pioglitazone HCl 15 mg 10/22/20 08:00 10/31/20 09:27 Pioglitazone Hcl 15 Mg Tab PO 15 mg DAILY@0800 BRANDY Administration Polyethylene Glycol 17 gm 10/22/20 09:00 10/31/20 09:28 Polyethylene Glycol 3350 17 Gm Powd.Pack PO 17 gm DAILY BRANDY Administration Senna/Docusate Sodium 2 tab 10/21/20 17:00 10/31/20 09:28 Senna/Docusate Sodium Tablet PO 2 tab BID BRANDY Administration Trazodone HCl 50 mg 10/21/20 21:00 10/30/20 21:55 Trazodone Hcl 50 Mg Tablet PO 50
[2020-10-31 20:15] VITALS: PULSE 89; RESP 20; O2SAT 99
[2020-10-31] MEDS: MELATONIN 3 MG TABLET 6 MG PO (20:20)
[2020-10-31] MEDS: traZODone HCL 50 MG TABLET PO (20:20)
[2020-10-31 22:00] VITALS: BP 102/47; PULSE 82; RESP 16; TEMP 36.9; O2SAT 97
[2020-11-01] MEDS: oxyCODONE HCL (*CRX) 5 MG TAB IR PO ×3 (05:37→21:17)
[2020-11-01 06:00] VITALS: BP 112/49; PULSE 77; RESP 18; TEMP 36.7; O2SAT 97
[2020-11-01 06:54] LABS: Glucose Point of Care 110 (65-105)
[2020-11-01] MEDS: PIOGLITAZONE HCL 15 MG TAB PO (08:12)
[2020-11-01] MEDS: ATORVASTATIN 20 MG TABLET PO (08:12)
[2020-11-01] MEDS: LIDOCAINE 5% PATCH 2 PATCH TOPICAL (08:12)
[2020-11-01] MEDS: SENNA/DOCUSATE SODIUM TABLET 2 TAB PO ×2 (08:12→17:12)
[2020-11-01] MEDS: polyethylene glycoL 3350 17 GM POWD.PACK PO (08:12)
[2020-11-01] MEDS: lisinopriL 20 MG TABLET PO (08:12)
[2020-11-01] MEDS: ASPIRIN 81 MG ENTERIC TABLET PO (08:12)
[2020-11-01] MEDS: DICLOFENAC SOD 75 MG TABLET.EC PO ×2 (08:13→17:12)
[2020-11-01 14:00] VITALS: BP 115/49; PULSE 93; RESP 16; TEMP 36.7; O2SAT 98
[2020-11-01 16:54] LABS: Glucose Point of Care 120 (65-105)
[2020-11-01 20:52] VITALS: BP 112/51; PULSE 90; RESP 18; TEMP 36.2; O2SAT 97
[2020-11-01] MEDS: traZODone HCL 50 MG TABLET PO (21:17)
[2020-11-01] MEDS: MELATONIN 3 MG TABLET 6 MG PO (21:17)
[2020-11-02 05:38] VITALS: BP 123/50; PULSE 85; RESP 18; TEMP 35.8; O2SAT 99
[2020-11-02] MEDS: oxyCODONE HCL (*CRX) 5 MG TAB IR PO ×3 (05:48→21:00)
[2020-11-02 05:51] LABS: Glucose Point of Care 92 (65-105)
[2020-11-02] MEDS: DICLOFENAC SOD 75 MG TABLET.EC PO ×2 (08:49→17:23)
[2020-11-02] MEDS: ASPIRIN 81 MG ENTERIC TABLET PO (08:49)
[2020-11-02] MEDS: SENNA/DOCUSATE SODIUM TABLET 2 TAB PO (08:49)
[2020-11-02] MEDS: lisinopriL 20 MG TABLET PO (08:49)
[2020-11-02] MEDS: PIOGLITAZONE HCL 15 MG TAB PO (08:49)
[2020-11-02] MEDS: LIDOCAINE 5% PATCH 2 PATCH TOPICAL (08:49)
[2020-11-02] MEDS: ATORVASTATIN 20 MG TABLET PO (08:50)
[2020-11-02 14:00] VITALS: BP 115/57; PULSE 102; RESP 18; TEMP 36.1; O2SAT 98
[2020-11-02 17:12] LABS: Glucose Point of Care 140 (65-105)
--- NOTE | 2020-11-02 17:20 | WPDNEURORHBP ---
Subjective Date/time seen: 85 years old involving the physical therapy and occupational therapy remains stable, extremely hard of hearing. His temp is 36.1? pulse 102 respiration 18 blood pressure 115/57 pulse ox 98% on room air, change in the medications and no new lab Review of Systems Review of Systems: All systems reviewed & are unremarkable except as noted in HPI and below Functional Status Ambulation Ability Ability to Ambulate 10 Feet: Maximum Assistance X 1 Ambulation Assistive Devices: Parallel Bars and Walker, Wheeled Exam Const: General: cooperative, comfortable and no acute distress Nutritional Appearance: average body habitus Limitations: other limitations ( severe hearing deficit) HENMT: Head: normocephalic Ears: hearing grossly normal bilaterally and hearing grossly impaired General nose exam: Normal external nose present and No nasal discharge present Mouth: Yes Normal oral and palatal mucosa present Eyes: General: appearance normal, both eyes and all related structures Neck: Neck: full ROM Resp: Effort & Inspection: normal respiratory effort Auscultation: clear to auscultation bilaterally Cardio: Jugular venous distension: no JVD Rate: regular rate Rhythm: regular rhythm GI: Auscultation: normal bowel sounds Neuro: General: patient oriented x3 Cranial nerves: Yes CN's II-XII intact bilaterally, Yes Facial sensation intact/muscles of mastication intact, Yes Equal, round and reactive pupils present, Yes Nystagmus not present, Yes Normal facial strength present, Yes facial symmetry, Yes Midline tongue present, Yes Normal gag reflex present, Yes Symmetric palate elevation present and Yes hard of hearing Cognition (Neuro): normal cognition Speech: normal speech Motor exam (neuro): 5/5 motor strength present throughout Sensory Exam: Sensory deficit (Neuro) Coordination: [id number] test normal Psych: Mental Status: mental status grossly normal Objective Data Vital Signs Vital Signs: Vital Signs - 24 hr 11/01/20 20:52 11/02/20 05:38 11/02/20 14:00 Temperature 36.2 C L 35.8 C L 36.1 C L Pulse Rate 90 85 102 H Respiratory Rate 18 18 18 Blood Pressure 112/51 L 123/50 L 115/57 L Pulse Oximetry 97 99 98 Intake/Output Intake/Output: Intake & Output 10/30/20 10/31/20 11/01/20 11/02/20 23:59 23:59 23:59 23:59 Intake Total 720 720 480 480 Balance 720 720 480 480 Meds/Results Medications: Active Medications Generic Name Dose Route Start Last Admin Trade Name Fretammy PRN Reason Stop Dose Admin Acetaminophen 1,000 mg 10/21/20 17:14 10/31/20 09:29 Acetaminophen 500 Mg Tablet PO 1,000 mg Q6H PRN Administration Pain (Scale Score 4-6) Aspirin 81 mg 10/22/20 09:00 11/02/20 08:49 Aspirin 81 Mg Enteric Tablet PO 81 mg DAILY BRANDY Administration Atorvastatin Calcium 20 mg 10/22/20 09:00 11/02/20 08:50 Atorvastatin 20 Mg Tablet PO 20 mg DAILY BRANDY Administration Diclofenac Sodium 75 mg 10/30/20 17:00 11/02/20 08:49 Diclofenac Sod 75 Mg Tablet.Ec PO 75 mg BIDWM [facility] Administration Lidocaine 2 patch 10/22/20 09:00 11/02/20 08:49 Lidocaine 5% Patch TOPICAL 2 patch DAILY BRANDY Administration Lisinopril 20 mg 10/27/20 09:00 11/02/20 08:49 Lisinopril 20 Mg Tablet PO 20 mg QAM BRANDY Administration Melatonin 6 mg 10/24/20 21:00 11/01/20 21:17 Melatonin 3 Mg Tablet PO 6 mg HS BRANDY Administration Metformin HCl 850 mg 10/22/20 08:00 11/02/20 08:50 Metformin Hcl 850 Mg Tablet PO 850 mg DAILY@0800 [facility]ANDY Administration Oxycodone HCl 5 mg 10/30/20 22:00 11/02/20 14:47 Oxycodone Hcl (*Crx) 5 Mg Tab Ir PO 5 mg Q8HR BRANDY Administration Pioglitazone HCl 15 mg 10/22/20 08:00 11/02/20 08:49 Pioglitazone Hcl 15 Mg Tab PO 15 mg DAILY@0800 [facility] Administration Polyethylene Glycol 17 gm 10/22/20 09:00 11/02/20 08:51 Polyethylene Glycol 3350 17 Gm Powd.Pack PO Not Given DAILY BRANDY Senna/Docusate Sod
[2020-11-02 20:16] VITALS: BP 104/47; PULSE 95; RESP 20; TEMP 36.7; O2SAT 98
[2020-11-02] MEDS: traZODone HCL 50 MG TABLET PO (20:55)
[2020-11-02] MEDS: MELATONIN 3 MG TABLET 6 MG PO (20:55)
[2020-11-03] MEDS: oxyCODONE HCL (*CRX) 5 MG TAB IR PO ×3 (05:15→21:00)
[2020-11-03 05:25] LABS: Glucose Point of Care 102 (65-105)
[2020-11-03 05:37] VITALS: BP 101/41; PULSE 74; RESP 20; TEMP 35.9; O2SAT 99
[2020-11-03] MEDS: LIDOCAINE 5% PATCH 2 PATCH TOPICAL (07:56)
[2020-11-03] MEDS: SENNA/DOCUSATE SODIUM TABLET 2 TAB PO (07:57)
[2020-11-03] MEDS: DICLOFENAC SOD 75 MG TABLET.EC PO ×2 (07:57→17:29)
[2020-11-03] MEDS: PIOGLITAZONE HCL 15 MG TAB PO (07:57)
[2020-11-03] MEDS: ATORVASTATIN 20 MG TABLET PO (07:57)
[2020-11-03] MEDS: lisinopriL 20 MG TABLET PO (07:57)
[2020-11-03] MEDS: ASPIRIN 81 MG ENTERIC TABLET PO (07:57)
--- NOTE | 2020-11-03 11:20 | WPDNEURORHBP ---
Subjective Date/time seen: 11/03/20 11:20 85 years old involved in PT and occupational therapy has no specific complaints but extremely hard of hearing is still very cooperative with PT and OT Review of Systems Review of Systems: All systems reviewed & are unremarkable except as noted in HPI and below Functional Status Ambulation Ability Ability to Ambulate 10 Feet: Maximum Assistance X 1 Ambulation Assistive Devices: Parallel Bars and Walker, Wheeled Exam Const: General: cooperative and no acute distress Orientation/consciousness: patient oriented x3 Limitations: other limitations Eyes: General: appearance normal, both eyes and all related structures Neck: Neck: full ROM Resp: Effort & Inspection: able to speak in complete sentences Auscultation: clear to auscultation bilaterally Cardio: Rate: regular rate Rhythm: regular rhythm GI: Auscultation: normal bowel sounds Neuro: General: patient oriented x3 and moves all extremities Cranial nerves: Yes CN's II-XII intact bilaterally, Yes hard of hearing ( extreme) and Yes Ability to bilaterally elevate shoulders present Cognition (Neuro): normal cognition Speech: normal speech Gait exam (Neuro): Assistive device used Motor exam (neuro): No tremor noted Sensory Exam: normal sensation Plantar Reflex Responses: downgoing: bilateral Psych: Appearance: grossly normal Objective Data Vital Signs Vital Signs: Vital Signs - 24 hr 11/02/20 14:00 11/02/20 20:16 11/03/20 05:37 Temperature 36.1 C L 36.7 C 35.9 C L Pulse Rate 102 H 95 74 Respiratory Rate 18 20 20 Blood Pressure 115/57 L 104/47 L 101/41 L Pulse Oximetry 98 98 99 Intake/Output Intake/Output: Intake & Output 10/31/20 11/01/20 11/02/20 11/03/20 23:59 23:59 23:59 23:59 Intake Total 720 480 720 240 Balance 720 480 720 240 Meds/Results Medications: Active Medications Generic Name Dose Route Start Last Admin Trade Name Freq PRN Reason Stop Dose Admin Acetaminophen 1,000 mg 10/21/20 17:14 10/31/20 09:29 Acetaminophen 500 Mg Tablet PO 1,000 mg Q6H PRN Administration Pain (Scale Score 4-6) Aspirin 81 mg 10/22/20 09:00 11/03/20 07:57 Aspirin 81 Mg Enteric Tablet PO 81 mg DAILY BRANDY Administration Atorvastatin Calcium 20 mg 10/22/20 09:00 11/03/20 07:57 Atorvastatin 20 Mg Tablet PO 20 mg DAILY BRANDY Administration Diclofenac Sodium 75 mg 10/30/20 17:00 11/03/20 07:57 Diclofenac Sod 75 Mg Tablet.Ec PO 75 mg BIDWM BRANDY Administration Lidocaine 2 patch 10/22/20 09:00 11/03/20 07:56 Lidocaine 5% Patch TOPICAL 2 patch DAILY BRANDY Administration Lisinopril 20 mg 10/27/20 09:00 11/03/20 07:57 Lisinopril 20 Mg Tablet PO 20 mg QAM BRANDY Administration Melatonin 6 mg 10/24/20 21:00 11/02/20 20:55 Melatonin 3 Mg Tablet PO 6 mg HS BRANDY Administration Metformin HCl 850 mg 10/22/20 08:00 11/03/20 07:57 Metformin Hcl 850 Mg Tablet PO 850 mg DAILY@0800 BRANDY Administration Oxycodone HCl 5 mg 10/30/20 22:00 11/03/20 05:15 Oxycodone Hcl (*Crx) 5 Mg Tab Ir PO 5 mg Q8HR BRANDY Administration Pioglitazone HCl 15 mg 10/22/20 08:00 11/03/20 07:57 Pioglitazone Hcl 15 Mg Tab PO 15 mg DAILY@0800 BRANDY Administration Polyethylene Glycol 17 gm 10/22/20 09:00 11/03/20 07:58 Polyethylene Glycol 3350 17 Gm Powd.Pack PO Not Given DAILY BRANDY Senna/Docusate Sodium 2 tab 10/21/20 17:00 11/03/20 07:57 Senna/Docusate Sodium Tablet PO 2 tab BID BRANDY Administration Trazodone HCl 50 mg 10/21/20 21:00 11/02/20 20:55 Trazodone Hcl 50 Mg Tablet PO 50 mg HS BRANDY Administration Radiology Results: ITS Impressions Knee X-Ray 10/27/20 14:17 IMPRESSION: 1. 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 2. Small joint effusion. Labs Labs: Laboratory Results - last 24 hr 11/02/20 11/03/20 16:54 05:17 POC Capillary Glucose 140 H 102 Progr
--- NOTE | 2020-11-03 12:58 | PCPTNOTE ---
Smith Morillo was evaluated for a lift chair on 11/03/2020 by this physical therapist. The lift chair will resolve patient's mobility limitations and be used within the home. The lift chair will resolve the patient?s mobility deficits, including impaired generalized strength, impaired balance/coordination, back pain, and impaired functional activity tolerance. The patient had a fall which resulted in a L4 vertebral body burst fracture. Mr. Morillo must wear a custom back brace when he is out of bed at all times and he currently has spinal precautions in which he is unable to bend forward, twist, and lift. Mr. Morillo currently requires up to moderate assistance for sit to standing using a wheeled walker due to his impaired strength and onset of low back pain. He would highly benefit from a lift chair in order to facilitate improved independence with standing from a chair to a walker based upon his current impairments and diagnosis. Sirisha Rico, PT, DPT
--- NOTE | 2020-11-03 13:12 | PCPTNOTE ---
Smith Morillo Male : 1935 [facility]# [id number] 11/03/20 12:58 - Physical Therapy Note by Sirisha Rico PT Acct Num: [id number] : 1935 Patient Age: 85 Smith Morillo was evaluated for a lift chair on 11/03/2020 by this physical therapist. The lift chair will resolve patient's mobility limitations and be used within the home. The lift chair will resolve the patient?s mobility deficits, including impaired generalized strength, impaired balance/coordination, back pain, and impaired functional activity tolerance. The patient had a fall which resulted in a L4 vertebral body burst fracture. Mr. Morillo must wear a custom back brace when he is out of bed at all times and he currently has spinal precautions in which he is unable to bend forward, twist, and lift. Mr. Morillo currently requires up to moderate assistance for sit to standing using a wheeled walker due to his impaired strength and onset of low back pain. He would highly benefit from a lift chair in order to facilitate improved independence with standing from a chair to a walker based upon his current impairments and diagnosis. Sirisha Rico PT, DPT 11/03/20 Evaluating Therapist Date I agree with and certify that the above recommendation is medically necessary. Referring Physician Date Initialized on 11/03/20 12:58 - END OF NOTE
[2020-11-03 14:00] VITALS: BP 121/59; PULSE 92; RESP 18; TEMP 36.5; O2SAT 97
--- NOTE | 2020-11-03 14:18 | PCPTNOTE ---
Fernanda Jaimes PTA completed an inpatient rehab wheelchair evaluation on Smith Morillo on 11/03/2020. The patient is unable to safely and independently ambulate household distances due to their current impairments. Their diagnosis is L4 Vertebral body burst fracture and their impairments include decreased strength, decreased endurance, decreased range of motion, decreased balance, lower extremity weakness, and ataxia. Smith's weight bearing status is weight-bearing as tolerated on the bilateral lower legs. The patient demonstrates significant functional mobility limitations that impair their ability to participate in mobility-related activities of daily living (MRADLs), including toileting, feeding, dressing, grooming, and bathing in the customary locations in the home. These limitations cannot be sufficiently resolved by the use of an appropriately fitted cane or walker. It is recommended that the patient utilize a wheelchair for functional mobility within the home in order to facilitate optimal safety, independence and participation in all MRADL's and adequately access their home environment on a regular basis. The patient's home provides adequate access between rooms, maneuvering space, and surfaces to accommodate the recommended wheelchair. The use of a wheelchair for functional mobility is strongly recommended and the patient is receptive to using the wheelchair. The use of this wheelchair will significantly improve the patient's ability to participate in MRADLS and the patient will use it on a regular basis in the home. This will facilitate optimal safety, independence, and participation. The patient has demonstrated sufficient physical and mental capabilities needed to safely propel a manual wheelchair that is provided in the home during a typical day. Recommended Wheelchair Frame: STANDARD Recommended Wheelchair Size: 18 X 20 Recommended Wheelchair Cushion: STANDARD Wheelchair Leg Recommendations: BILATERAL SWING AWAY LEG RESTS * 20 inch seat height due to patient's anatomical height of 6 foot 2 inches -Anti-tippers are recommended due to patient demonstrating increased risk for falls. They would benefit from anti-tippers with added safety and stabilization. -Adjustable arm height is recommended because the patient requires an arm height that is different than that which is available using non-adjustable arms. The patient spends at least 2 hours per day in the wheelchair. Fernanda aJimes PTA 11/03/20 Evaluating Therapist Date I agree with and certify that the above recommendation is medically necessary. Referring Physician Date I agree with and certify that the above recommendation is medically necessary. Referring Physician Date
[2020-11-03 16:48] LABS: Glucose Point of Care 127 (65-105)
[2020-11-03] MEDS: traZODone HCL 50 MG TABLET PO (21:00)
[2020-11-03] MEDS: MELATONIN 3 MG TABLET 6 MG PO (21:00)
[2020-11-03 22:00] VITALS: BP 95/51; PULSE 77; RESP 16; TEMP 36.6; O2SAT 98
[2020-11-04] MEDS: oxyCODONE HCL (*CRX) 5 MG TAB IR PO ×3 (05:37→22:01)
[2020-11-04 06:00] VITALS: BP 122/51; PULSE 80; RESP 18; TEMP 36.9; O2SAT 95
[2020-11-04 06:03] LABS: Glucose Point of Care 101 (65-105)
[2020-11-04] MEDS: ATORVASTATIN 20 MG TABLET PO (08:40)
[2020-11-04] MEDS: LIDOCAINE 5% PATCH 2 PATCH TOPICAL (08:40)
[2020-11-04] MEDS: DICLOFENAC SOD 75 MG TABLET.EC PO ×2 (08:40→17:54)
[2020-11-04] MEDS: lisinopriL 20 MG TABLET PO (08:40)
[2020-11-04] MEDS: PIOGLITAZONE HCL 15 MG TAB PO (08:41)
[2020-11-04] MEDS: ASPIRIN 81 MG ENTERIC TABLET PO (08:41)
--- NOTE | 2020-11-04 12:14 | PCNFU ---
Nutrition Follow-Up Complete: No nutritional diagnosis at this time. Goal: Continue meeting nutritional needs and consuming 75-100% meals. Patient is meeting current goal. No new goal at this time. Pt current nutrition is Diabetic Consistent Carbohydrate Diet. Last recorded weight is 89.9 kg. Recommend re-weighing patient. Bowel Motility: + BM 11/03 Labs Reviewed: No new labs. Meds Noted: Lipitor, Lidoderm, Prinivil, Glucophage Actos, Flexeril, Miralax, Desyrel Additional Notes: Spoke with nurse aid. She reported he is making great progress. He eats 75-100% of all meals and feeds himself. He has not complained of loss of appetite. Monitor labs, medications, weight, and oral intake every 7 days.
--- NOTE | 2020-11-04 12:26 | PCNSR ---
On 11/04/20, the student, Ashley Mcneill, provided care and completed [facility] documentation on this patient. I have reviewed the student's documentation and agree with the findings.
[2020-11-04 14:00] VITALS: BP 120/49; PULSE 82; RESP 20; TEMP 36.7; O2SAT 100
--- NOTE | 2020-11-04 14:26 | WPDNEURORHBP ---
Subjective Date/time seen: 11/04/20 14:26 85 years old has been involved the physical therapy and occupational therapy, blood sugar 101, temp 36.9? pulse 80 respiration 18 pulse ox 95% blood pressure 122/51, no change in the medication, Review of Systems Review of Systems: All systems reviewed & are unremarkable except as noted in HPI and below Functional Status Ambulation Ability Ability to Ambulate 10 Feet: Maximum Assistance X 1 Ambulation Assistive Devices: Walker, Wheeled Exam Const: General: cooperative Eyes: General: appearance normal, both eyes and all related structures Chest: Chest palpation & inspection: normal inspection of the chest Resp: Effort & Inspection: normal respiratory effort Auscultation: clear to auscultation bilaterally Cardio: Rate: regular rate GI: Auscultation: normal bowel sounds Neuro: General: patient oriented x3 Cranial nerves: Yes CN's II-XII intact bilaterally, Yes Facial sensation intact/muscles of mastication intact, Yes Equal, round and reactive pupils present, Yes Nystagmus not present, Yes Midline tongue present and Yes hard of hearing Gait exam (Neuro): Assisted gait required Motor exam (neuro): 5/5 motor strength present throughout Psych: Appearance: grossly normal Objective Data Vital Signs Vital Signs: Vital Signs - 24 hr 11/03/20 22:00 11/04/20 06:00 Temperature 36.6 C 36.9 C Pulse Rate 77 80 Respiratory Rate 16 18 Blood Pressure 95/51 L 122/51 L Pulse Oximetry 98 95 Intake/Output Intake/Output: Intake & Output 11/01/20 11/02/20 11/03/20 11/04/20 23:59 23:59 23:59 23:59 Intake Total 480 720 720 240 Balance 480 720 720 240 Meds/Results Medications: Active Medications Generic Name Dose Route Start Last Admin Trade Name Freq PRN Reason Stop Dose Admin Acetaminophen 1,000 mg 10/21/20 17:14 10/31/20 09:29 Acetaminophen 500 Mg Tablet PO 1,000 mg Q6H PRN Administration Pain (Scale Score 4-6) Aspirin 81 mg 10/22/20 09:00 11/04/20 08:41 Aspirin 81 Mg Enteric Tablet PO 81 mg DAILY BRANDY Administration Atorvastatin Calcium 20 mg 10/22/20 09:00 11/04/20 08:40 Atorvastatin 20 Mg Tablet PO 20 mg DAILY BRANDY Administration Diclofenac Sodium 75 mg 10/30/20 17:00 11/04/20 08:40 Diclofenac Sod 75 Mg Tablet.Ec PO 75 mg BIDWM BRANDY Administration Lidocaine 2 patch 10/22/20 09:00 11/04/20 08:40 Lidocaine 5% Patch TOPICAL 2 patch DAILY BRANDY Administration Lisinopril 20 mg 10/27/20 09:00 11/04/20 08:40 Lisinopril 20 Mg Tablet PO 20 mg QAM BRANDY Administration Melatonin 6 mg 10/24/20 21:00 11/03/20 21:00 Melatonin 3 Mg Tablet PO 6 mg HS BRANDY Administration Metformin HCl 850 mg 10/22/20 08:00 11/04/20 08:40 Metformin Hcl 850 Mg Tablet PO 850 mg DAILY@0800 BRANDY Administration Oxycodone HCl 5 mg 10/30/20 22:00 11/04/20 14:18 Oxycodone Hcl (*Crx) 5 Mg Tab Ir PO 5 mg Q8HR BRANDY Administration Pioglitazone HCl 15 mg 10/22/20 08:00 11/04/20 08:41 Pioglitazone Hcl 15 Mg Tab PO 15 mg DAILY@0800 BRANDY Administration Polyethylene Glycol 17 gm 10/22/20 09:00 11/04/20 08:39 Polyethylene Glycol 3350 17 Gm Powd.Pack PO Not Given DAILY BRANDY Senna/Docusate Sodium 2 tab 10/21/20 17:00 11/04/20 08:39 Senna/Docusate Sodium Tablet PO Not Given BID BRNADY Trazodone HCl 50 mg 10/21/20 21:00 11/03/20 21:00 Trazodone Hcl 50 Mg Tablet PO 50 mg HS BRANDY Administration Radiology Results: ITS Impressions Knee X-Ray 10/27/20 14:17 IMPRESSION: 1. 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 2. Small joint effusion. Labs Labs: Laboratory Results - last 24 hr 11/03/20 11/04/20 16:43 05:40 POC Capillary Glucose 127 H 101 Progress Note: A&P Assessment and Plan (1) Hearing deficit: Code(s): H91.90 - Unspecified hearing loss, unspecified ear Status: Acute (2) Epidural hematoma:
[2020-11-04 17:14] LABS: Glucose Point of Care 146 (65-105)
[2020-11-04] MEDS: MELATONIN 3 MG TABLET 6 MG PO (21:59)
[2020-11-04] MEDS: traZODone HCL 50 MG TABLET PO (21:59)
[2020-11-04 22:00] VITALS: BP 139/57; PULSE 94; RESP 18; TEMP 36.9; O2SAT 98
[2020-11-05] MEDS: oxyCODONE HCL (*CRX) 5 MG TAB IR PO ×2 (05:19→13:45)
[2020-11-05 05:26] LABS: Basophils Percent Auto 0.8 % (0.2-1.2); Eosinophils Absolute Auto 0.1 K/mm3 (0-0.3); Eosinophils Percent Auto 1.4 % (0-4.4); Hemoglobin 9.4 g/dL (14.0-18.0); Immature Granulocyte Absolute 0.06 K/mm3 (0.00-0.031); Immature Granulocyte Percent A 1.2 % (0-0.5); Lymphocytes Absolute Auto 1.16 K/mm3 (0.9-3.2); Mean Corpuscular HGB Conc 32.4 g/dl (32-36); Mean Corpuscular Hemoglobin 31.9 pg (26-34); Mean Corpuscular Volume 98.3 fl (80-100); Mean Platelet Volume 9.4 fl (7.4-10.4); Monocytes Absolute Auto 0.4 K/mm3 (0.1-0.6); Monocytes Percent Auto 8.5 % (2.6-8.5); Neutrophils Absolute Auto 3.1 K/mm3 (1.3-6.7); Neutrophils Percent Auto 64.1 % (45.5-73.1); Platelet Count Result 205 k/mm3 (150-375); Red Blood Count 2.95 M/mm3 (4.6-6.20); Red Cell Distribution Width 16.6 % (11.5-14.5); White Blood Count 4.8 K/mm3 (4.5-10.0)
[2020-11-05 05:38] LABS: Anion Gap 1 mmol/L (8-16); Blood Urea Nitrogen 27 mg/dL (9-20); Calcium 8.2 mg/dL (8.4-10.2); Carbon Dioxide 31 mmol/L (22-30); Chloride 102 mmol/L (98-107); Estimated CRCL calculation 56 ml/min; Estimated Glomerular Filt Rate > 60; Glucose 104 mg/dL (75-110); Potassium 4.1 mmol/L (3.4-5.0); Sodium 134 mmol/L (137-145)
[2020-11-05 05:51] LABS: Glucose Point of Care 94 (65-105)
[2020-11-05 06:00] VITALS: BP 95/43; PULSE 69; RESP 16; TEMP 36.2; O2SAT 100
[2020-11-05 08:00] VITALS: PULSE 69; RESP 16; O2SAT 100
[2020-11-05 08:39] LABS: Glucose Point of Care 143 (65-105)
[2020-11-05] MEDS: LIDOCAINE 5% PATCH 2 PATCH TOPICAL (09:06)
[2020-11-05] MEDS: PIOGLITAZONE HCL 15 MG TAB PO (09:08)
[2020-11-05] MEDS: ASPIRIN 81 MG ENTERIC TABLET PO (09:08)
[2020-11-05] MEDS: ATORVASTATIN 20 MG TABLET PO (09:08)
[2020-11-05] MEDS: DICLOFENAC SOD 75 MG TABLET.EC PO ×2 (09:11→16:14)
[2020-11-05 14:00] VITALS: BP 110/47; PULSE 85; RESP 20; TEMP 36.8; O2SAT 100
[2020-11-05] MEDS: lisinopriL 10 MG TABLET PO (14:57)
[2020-11-05 17:56] LABS: Glucose Point of Care 148 (65-105)
[2020-11-05 20:00] VITALS: PULSE 85; RESP 20; O2SAT 100
[2020-11-05 22:00] VITALS: BP 117/55; PULSE 75; RESP 18; TEMP 36.3; O2SAT 97
[2020-11-06 05:17] VITALS: BP 112/42; PULSE 75; RESP 18; TEMP 36.7; O2SAT 96
[2020-11-06 08:00] VITALS: PULSE 75; RESP 18; O2SAT 96
[2020-11-06] MEDS: DICLOFENAC SOD 75 MG TABLET.EC PO ×2 (08:52→16:58)
[2020-11-06] MEDS: lisinopriL 10 MG TABLET PO (08:52)
[2020-11-06] MEDS: PIOGLITAZONE HCL 15 MG TAB PO (08:52)
[2020-11-06] MEDS: ASPIRIN 81 MG ENTERIC TABLET PO (08:52)
[2020-11-06] MEDS: ATORVASTATIN 20 MG TABLET PO (08:52)
[2020-11-06] MEDS: LIDOCAINE 5% PATCH 2 PATCH TOPICAL (08:53)
[2020-11-06] MEDS: oxyCODONE HCL (*CRX) 5 MG TAB IR PO ×2 (13:38→21:10)
--- NOTE | 2020-11-06 13:40 | WPDNEURORHBP ---
Subjective Date/time seen: 11/06/20 13:40 status post L4 vertebral body fracture extending through the anterior and posterior cortex along with hypertension diabetes mellitus and history of extremely hard of hearing continues to be involved in the physical therapy and occupational therapy, lab yesterday hemoglobin 9.4 otherwise not very significant, remains afebrile pulse 75 respiration 18 pulse ox 96% on room air and blood pressure 112/42 Review of Systems Review of Systems: All systems reviewed & are unremarkable except as noted in HPI and below Functional Status Ambulation Ability Ability to Ambulate 10 Feet: Minimum Assistance X 1 Ambulation Assistive Devices: Walker, Wheeled Exam Const: General: cooperative, comfortable, no acute distress, alert and awake Nutritional Appearance: average body habitus and thin Orientation/consciousness: oriented to person, oriented to place and oriented to time Limitations: no limitations ( significant hearing deficit) HENMT: Head: normocephalic Ears: hearing grossly impaired ( bilateral) General nose exam: Normal external nose present and No nasal discharge present Face and sinus: normal facial exam Mouth: Yes Normal oral and palatal mucosa present Eyes: General: appearance normal, both eyes and all related structures Neck: Neck: full ROM Resp: Effort & Inspection: normal respiratory effort Auscultation: clear to auscultation bilaterally Cardio: Rate: regular rate GI: Auscultation: normal bowel sounds Neuro: General: patient oriented x3 and moves all extremities Cranial nerves: Yes CN's II-XII intact bilaterally and Yes hard of hearing Cognition (Neuro): normal cognition Speech: normal speech Gait exam (Neuro): Assisted gait required Motor exam (neuro): 5/5 motor strength present throughout Sensory Exam: normal sensation Deep tendon reflexes (DTR's): Right triceps reflex intensity grade: 1+, Left triceps reflex intensity grade: 1+, Rt Biceps (C5, C6): 1+, Left biceps reflex intensity grade: 1+, Right brachioradialis reflex intensity grade: 1+, Left brachioradialis reflex intensity grade: 1+, Right patellar reflex intensity grade: 1+, Left patellar reflex intensity grade: 1+, Right ankle reflex intensity grade: 1+ and Left ankle reflex intensity grade: 1+ Plantar Reflex Responses: downgoing: bilateral Coordination: [id number] test normal Psych: Appearance: grossly normal Objective Data Vital Signs Vital Signs: Vital Signs - 24 hr 11/05/20 14:00 11/05/20 20:00 11/05/20 22:00 Temperature 36.8 C 36.3 C L Pulse Rate 85 85 75 Respiratory Rate 20 20 18 Blood Pressure 110/47 L 117/55 L Pulse Oximetry 100 100 97 11/06/20 05:17 11/06/20 08:00 Temperature 36.7 C Pulse Rate 75 75 Respiratory Rate 18 18 Blood Pressure 112/42 L Pulse Oximetry 96 96 Intake/Output Intake/Output: Intake & Output 11/03/20 11/04/20 11/05/20 11/06/20 23:59 23:59 23:59 23:59 Intake Total 720 720 720 480 Balance 720 720 720 480 Meds/Results Medications: Active Medications Generic Name Dose Route Start Last Admin Trade Name Elian PRN Reason Stop Dose Admin Acetaminophen 1,000 mg 10/21/20 17:14 10/31/20 09:29 Acetaminophen 500 Mg Tablet PO 1,000 mg Q6H PRN Administration Pain (Scale Score 4-6) Aspirin 81 mg 10/22/20 09:00 11/06/20 08:52 Aspirin 81 Mg Enteric Tablet PO 81 mg DAILY BRANDY Administration Atorvastatin Calcium 20 mg 10/22/20 09:00 11/06/20 08:52 Atorvastatin 20 Mg Tablet PO 20 mg DAILY BRANDY Administration Diclofenac Sodium 75 mg 10/30/20 17:00 11/06/20 08:52 Diclofenac Sod 75 Mg Tablet.Ec PO 75 mg BIDWM BRANDY Administration Lidocaine 2 patch 10/22/20 09:00 11/06/20 08:53 Lidocaine 5% Patch TOPICAL 2 patch DAILY BRANDY Administration Lisinopril 10 mg 11/05/20 12:50 11/06/20 08:52 Lisinopril 10 Mg Tablet PO 10 mg QAM BRANDY Administration Melatonin 6 mg 10/24/20 21:00 11/04/20 21:59 Melatonin 3
[2020-11-06 14:00] VITALS: BP 116/54; PULSE 81; RESP 20; TEMP 36.9; O2SAT 96
[2020-11-06 17:38] LABS: Glucose Point of Care 117 (65-105)
[2020-11-06 20:00] VITALS: PULSE 81; RESP 20; O2SAT 96
[2020-11-06] MEDS: MELATONIN 3 MG TABLET 6 MG PO (21:11)
[2020-11-06] MEDS: traZODone HCL 50 MG TABLET PO (21:11)
[2020-11-06 22:00] VITALS: BP 96/43; PULSE 82; RESP 18; TEMP 36.7; O2SAT 95
[2020-11-07 05:09] LABS: Glucose Point of Care 104 (65-105)
[2020-11-07] MEDS: oxyCODONE HCL (*CRX) 5 MG TAB IR PO ×3 (05:11→21:03)
[2020-11-07 05:21] VITALS: BP 145/51; PULSE 106; RESP 18; TEMP 36.8; O2SAT 98
[2020-11-07] MEDS: ASPIRIN 81 MG ENTERIC TABLET PO (08:29)
[2020-11-07] MEDS: ATORVASTATIN 20 MG TABLET PO (08:29)
[2020-11-07] MEDS: lisinopriL 10 MG TABLET PO (08:29)
[2020-11-07] MEDS: LIDOCAINE 5% PATCH 2 PATCH TOPICAL (08:29)
[2020-11-07] MEDS: DICLOFENAC SOD 75 MG TABLET.EC PO ×2 (08:29→17:22)
[2020-11-07] MEDS: PIOGLITAZONE HCL 15 MG TAB PO (08:29)
[2020-11-07] MEDS: SENNA/DOCUSATE SODIUM TABLET 2 TAB PO ×2 (08:29→17:22)
--- NOTE | 2020-11-07 13:10 | PC.NURSE ---
Per telephone verbal, overnight cashier nurse Janet, on 11/05/2020 states she did administer the 9pm doses of Melatonin and Trazadone, as well as the 10pm dose of Oxycodone around 10pm.
[2020-11-07 14:00] VITALS: BP 119/48; PULSE 93; RESP 18; TEMP 36.6; O2SAT 99
[2020-11-07] MEDS: traZODone HCL 50 MG TABLET PO (21:03)
[2020-11-07] MEDS: MELATONIN 3 MG TABLET 6 MG PO (21:03)
[2020-11-07 21:12] LABS: Glucose Point of Care 171 (65-105)
[2020-11-07 21:39] VITALS: BP 97/51; PULSE 89; RESP 20; TEMP 36.8; O2SAT 97
[2020-11-08] MEDS: oxyCODONE HCL (*CRX) 5 MG TAB IR PO (05:15)
[2020-11-08 05:19] LABS: Glucose Point of Care 108 (65-105)
[2020-11-08 05:44] VITALS: BP 116/50; PULSE 75; RESP 20; TEMP 36.4; O2SAT 98
[2020-11-08] MEDS: DICLOFENAC SOD 75 MG TABLET.EC PO (08:31)
[2020-11-08] MEDS: lisinopriL 10 MG TABLET PO (08:31)
[2020-11-08] MEDS: SENNA/DOCUSATE SODIUM TABLET 2 TAB PO (08:31)
[2020-11-08] MEDS: ATORVASTATIN 20 MG TABLET PO (08:31)
[2020-11-08] MEDS: ASPIRIN 81 MG ENTERIC TABLET PO (08:31)
[2020-11-08] MEDS: PIOGLITAZONE HCL 15 MG TAB PO (08:31)
[2020-11-08] MEDS: polyethylene glycoL 3350 17 GM POWD.PACK PO (08:32)
[2020-11-08] MEDS: LIDOCAINE 5% PATCH 2 PATCH TOPICAL (08:32)
[2020-11-08] MEDS: ACETAMINOPHEN 500 MG TABLET 1000 MG PO (09:55)
--- NOTE | 2020-11-09 15:11 | PM.DS ---
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 Additionally there were tiny epidural hematoma at the level of L3-4 contributing to the canal stenosis. at the time of admission her QIM measures were as follows Eating [Set Up Only] Oral Care substantial or maximal assistance Toileting Hygiene dependent Shower/Bathing substantial or maximal assistance Upper Body Dressing substantial or maximal assistance Lower Body Dressing dependent Donning/Bandon Footwear dependent Rolling Left and Right substantial or maximal assistance Sit to Lying substantial or maximal assistance Lying to Sitting unable Sit to Stand substantial or maximal assistance Bed to Chair Transfers substantial or maximal assistance Toilet Transfers substantial or maximal assistance Car Transfers unable to do so Walking 10' unable Walking 50' with Two Turns unable Walking 150' unable Curb or Step unable 4 Steps unable 12 Steps unable Picking Up Object unable [Wheelchair Mobility 50'] unable [Wheelchair Mobility 150'] unable GOALS: Eating set up Oral Care [INDEPENDENT] Toileting Hygiene supervision Shower/Bathing partial health care legal assistant Upper Body Dressing partial assistance Lower Body Dressing partial assisted Donning/Bandon Footwear partial health care legal assistant Rolling Left and Right independent Sit to Lying independent Lying to Sitting independent Sit to Stand supervision Bed to Chair Transfers supervision Toilet Transfers supervision Car Transfers supervision Walking 10' supervise Walking 50' with Two Turns supervision Walking 150' not applicable Curb or Step supervision 4 Steps supervision 12 Steps not applicable Picking Up Object supervision [Wheelchair Mobility 50'] independent [Wheelchair Mobility 150'] [INDEPENDENT] DISCHARGE PERFORMANCE: Eating set up Oral Care [INDEPENDENT] Toileting Hygiene substantial assistance Shower/Bathing partial assist Upper Body Dressing partial assistance Lower Body Dressing partial health care legal assistant Donning/Bandon Footwear supervision Rolling Left and Right supervision Sit to Lying independent Lying to Sitting partial assistance Sit to Stand partial assisted Bed to Chair Transfers partial health care legal assistant Toilet Transfers partial assistance Car Transfers partial health care legal assistant Walking 10' partial health care legal assistant Walking 50' with Two Turns supervision Walking 150' unable Curb or Step partial assistance 4 Steps unable 12 Steps not applicable Picking Up Object unable [Wheelchair Mobility 50'] supervision [Wheelchair Mobility 150'] unable # during the hospitalization no other physician was involved in his care, he was actively involved in the physical therapy and occupational therapy. By the time of discharge he was able to ambulate up to 10ft with minimum assistance of 1 using a wheeled walker and his general and neurological examination remained stable, he remained afebrile normotensive on room air with minimally fluctuating blood sugar.He has no falls or injuries, was discharged to his home with a home health instruction . Discharge Plan Discharge Patient Disposition: Home Health Service Activity: january shower, no
== END 2020-11-08 13:22 | disposition home health service (06) | DRG 561 ==
PROVIDERS: Admitting Provider Psychiatry & Neurology Neurology; PCP Pediatrics; Visit Provider Psychiatry & Neurology Neurology
DX: S32.041D Stable burst fracture of fourth lumbar vertebra, subsequent encounter for fracture with routine healing (principal); W19.XXXD Unspecified fall, subsequent encounter; E11.9 Type 2 diabetes mellitus without complications; E78.5 Hyperlipidemia, unspecified; H91.90 Unspecified hearing loss, unspecified ear; I10 Essential (primary) hypertension; M48.061 Spinal stenosis, lumbar region without neurogenic claudication; M23.42 Loose body in knee, left knee; M23.41 Loose body in knee, right knee; Z79.82 Long term (current) use of aspirin; Z79.84 Long term (current) use of oral hypoglycemic drugs; Z23 Encounter for immunization
CPT/HCPCS: 36415; 73560; 80048; 80076; 81001; 82948; 85025; 90471; 90653; 92507; 92523; 97110; 97116; 97129; 97130; 97140; 97161; 97166; 97530; 97535; 97542; A9270; G0008